=== PATIENT | female | born 1990 | race Caucasian/White ===

== ENCOUNTER 2022-06-10 12:36 | Emergency (ER) | payer BC, OTHER, SELFPAY ==
[2022-06-10 14:20] VITALS: BP 99/66; PULSE 77; RESP 16; TEMP 36.6; O2SAT 99; BMI 21.6
--- NOTE | 2022-06-10 14:26 | EXP.UTC ---
Discharge Plan Disposition Patient Disposition: Home, Self-Care Condition: Good Prescriptions Prescriptions: New azithromycin [Zithromax] 250 mg tablet 250 mg PO UD DOSE PK Qty: 6 0RF Rx Instructions: Take two (2) tablets today, then one (1) tablet days #2 thru #5 benzonatate [benzonatate] 100 mg capsule 100 mg PO TIDP PRN (Reason: Cough) Qty: 30 0RF methylprednisolone 4 mg Tablets,Dose Pack 4 mg PO DIRECTED Qty: 21 0RF Referrals Follow up/Referrals: Provider,Referral, MD [Primary Care Provider] - See instructions Activity Restrictions/Add. Instructions Additional Instructions/Restrictions: Drink plenty of fluids. Take tylenol or ibuprofen for pain or fever. Take the medications as directed. Follow up with your regular doctor. GO TO THE ER FOR ANY WORSENING SYMPTOMS Clinical Impressions Clinical Impression: Sinusitis, Bronchitis Stand Alone Forms Stand Alone Forms: Work/School Release Instructions Patient Instructions: Sinusitis, DI for Sinusitis Discharge ED Provider: Horacio Mendez [facility] General Stated complaint: congested X3 weeks Mode of Arrival: Ambulatory Source of Information: Patient Limitations: No Limitations Time Seen by Provider: 06/10/22 14:23 Description of Symptoms (Recalled from Triage Doc. by RN): pt comes in with c/o congestion, runny nose, sinus pressure ongoing for 5-6 weeks. HEENT Symptoms (Recalled from RN notes): Yes Resp Symptoms (Recalled from RN notes): Yes Skin Symptoms (Recalled from RN notes): No MS Symptoms (Recalled from RN notes): No Functional Status (Recalled from RN notes): n/a History of Present Illness Provider Complaint: She is here with sinus congestion and a cough for the past 3 weeks approx. She denies any fever, chills, body aches and other symptoms. Related Data Previous Rx's Medication Instructions Recorded azithromycin 250 mg tablet 250 mg PO UD DOSE PK #6 tabs 06/10/22 (Zithromax) benzonatate 100 mg capsule 100 mg PO TIDP PRN Cough #30 caps 06/10/22 methylprednisolone 4 mg tablets in 4 mg PO DIRECTED #21 tabs 06/10/22 a dose pack Allergies Allergy/AdvReac Type Severity Reaction Status Date / Time ceftriaxone [From Rocephin] Allergy Verified 06/10/22 14:22 Worker's Comp Is this a Worker's Comp case?: No PFSH PFSH Social History Smoking Status: Never smoker alcohol intake: never current occupational status: employed Travel in the last 8 weeks: None ROS Obtained: Yes All systems reviewed & no additional complaints except as documented Constitutional Constitutional: Denies chills, Denies fever(s) and Reports poor appetite Eyes Eyes: Denies eye discharge ENT Ears, Nose, Mouth, and Throat: Denies ear discharge, Reports otalgia, Denies hearing loss, Denies sinus pain and Reports sore throat Cardiovascular Cardiovascular: Denies chest pain and Denies dyspnea Respiratory Respiratory: Denies chest congestion, Reports cough and Denies dyspnea Gastrointestinal Gastrointestingal: Denies abdominal pain, diarrhea, nausea or vomiting Musculoskeletal Musculoskeletal: Denies arthralgias Integumentary/Breasts Skin/Breast: Denies rash Physical Exam General General appearance: alert and in no apparent distress Head Head exam: atraumatic, normocephalic and normal inspection Eye Eye exam: Present normal appearance, PERRL and EOMI ENT ENT exam: Present normal exam, normal oropharynx, mucous membranes moist, TM's normal bilaterally and normal external ear exam Neck Neck exam: Present normal inspection, full ROM and trachea midline; Absent meningismus or lymphadenopathy Chest Chest inspection: Present normal inspection and symmetric chest wall rise; Absent tenderness Respiratory Respiratory exam: Present normal lung sounds bilaterally; Absent respiratory distress Cardiovascular Cardiovascular exam: Present regular rate and normal rhythm; Absent JVD Abdominal Exam Abdominal exam: Present soft and
[2022-06-10 14:47] VITALS: BP 99/66; PULSE 77; RESP 16; TEMP 36.6
[2022-06-10 14:51] LABS: Adenovirus,PCR Not Detected (NotDetected); Bordetella Pertussis Not Detected (NotDetected); Chlamydophila Pneumoniae, PCR Not Detected (NotDetected); Coronavirus 19, PCR Not Detected (NotDetected); Coronavirus 229E Not Detected (NotDetected); Coronavirus NL63 Not Detected (NotDetected); Coronavirus OC43 Not Detected (NotDetected); Coronovirus HKU1,PCR Not Detected (NotDetected); Human Metapneumovirus Not Detected (NotDetected); Influenza A, PCR Not Detected (NotDetected); Influenza AH1, 2009 Not Detected (NotDetected); Influenza AH1, PCR Not Detected (NotDetected); Influenza AH3,PCR Not Detected (NotDetected); Influenza B, PCR Not Detected (NotDetected); Mycoplasma Pneumoniae, PCR Not Detected (NotDetected); Parainfluenza 1, PCR Not Detected (NotDetected); Parainfluenza 2, PCR Not Detected (NotDetected); Parainfluenza 3, PCR Not Detected (NotDetected); Parainfluenza 4, PCR Not Detected (NotDetected); Respiratory Syncytial Virus Not Detected (NotDetected)
[2022-06-11 09:10] LABS: Rhinovirus/Enterovirus Detected (NotDetected)
== END 2022-06-10 14:48 | disposition home or self-care (01) ==
PROVIDERS: Emergency Provider Nurse Practitioner Family
DX: J40 Bronchitis, not specified as acute or chronic (principal); J32.9 Chronic sinusitis, unspecified
CPT/HCPCS: 87581; 87632; 87798; 99212; C9803; G0463; U0003; U0005

== ENCOUNTER 2022-07-16 12:10 | Emergency (ER) | payer BC, OTHER, SELFPAY ==
[2022-07-16 12:24] VITALS: BP 140/69; PULSE 92; RESP 18; TEMP 36.8; O2SAT 97; BMI 21.4
[2022-07-16 12:40] LABS: UTC Strep Screen (Rapid) Negative (Negative)
--- NOTE | 2022-07-16 12:40 | EXP.UTC ---
Discharge Plan Disposition Patient Disposition: Home, Self-Care Condition: Good Prescriptions Prescriptions: New methylprednisolone [Medrol (David)] 4 mg tablets,dose pack See Rx Instructions .Route .COMPLEX 6 Days Qty: 21 0RF Rx Instructions: taper pack; fluticasone propionate [Flonase Allergy Relief] 50 mcg/actuation spray,suspension 1 spray intranasal DAILY Qty: 16 0RF Rx Instructions: administer into each nostril azithromycin [Zithromax Z-David] 250 mg tablet See Rx Instructions .ROUTE .COMPLEX 5 Days Qty: 6 0RF Rx Instructions: For 250 mg dose pack: take 500 mg today (day 1), then 250 mg for 4 days (days 2-5) No Action norethindrone ac-eth estradiol [Microgestin 08/02 ()] 1-20 mg-mcg tablet 1 tab PO DAILY Label Comments: TAKE 1 TABLET BY MOUTH ONCE DAILY Referrals Follow up/Referrals: Provider,Referral, MD [Primary Care Provider] - See instructions Activity Restrictions/Add. Instructions Additional Instructions/Restrictions: *Monitor Temp, Over the counter Motrin or Tylenol as directed/as needed Tylenol every 4 hours and Motrin every 6 hours (as long as your family doctor has told you that you can take it) for fever or pain. and straight to ER if unable to lower temp less than 101.0 after medication given *Warm salt water gargles may help to soothe the throat *Throat Lozenges? *Warm fluids like tea with honey may help to soothe the throat? *Sleep elevated *Humidifier/Vaporizer Your throat swab was sent for culture. Those results are typically sent to your primary care. Be sure to follow up in 2-3 days with your family doctor/primary care physician if no improvement so they can review those result and treat if necessary. If you don?t have a primary care doctor, I recommend you get one but in the mean time, you will have to return to a walk in clinic Follow up IMMEDIATELY for new or worsening symptoms or no Noticeable improvement over the next 48-72 hours. 911 for difficulty breathing or swallowing Clinical Impressions Clinical Impression: URI (upper respiratory infection) Qualifiers: URI type: unspecified URI Qualified Code(s): J06.9 - Acute upper respiratory infection, unspecified Instructions Patient Instructions: Sore Throat, DI for Sinusitis Discharge ED Provider: Marguerite Lemons [facility] General Stated complaint: Sore throat, neck pain Mode of Arrival: Ambulatory Source of Information: Patient Time Seen by Provider: 07/16/22 12:40 Description of Symptoms (Recalled from Triage Doc. by RN): sore throat, neck aching, cough, GARCIA, and drainage HEENT Symptoms (Recalled from RN notes): Yes Resp Symptoms (Recalled from RN notes): No Skin Symptoms (Recalled from RN notes): No MS Symptoms (Recalled from RN notes): No Functional Status (Recalled from RN notes): n/a History of Present Illness Provider Complaint: Patient states she has been having sore throat, sinus drainage in the back of her throat headache and sinus congestion States that today she was still not feeling well and her throat was hurting worse so she came in to get checked out Related Data Home Medications Medication Instructions Recorded Confirmed norethindrone acetate 1 mg-ethinyl 1 tab PO DAILY control 07/16/22 07/16/22 estradiol 20 mcg tablet (Microgestin) Previous Rx's Medication Instructions Recorded azithromycin 250 mg tablet See Rx Instructions PO .COMPLEX 5 07/16/22 (Zithromax Z-David) days #6 tabs fluticasone propionate 50 1 spray intranasal DAILY #16 grams 07/16/22 mcg/actuation nasal spray,suspension (Flonase Allergy Relief) methylprednisolone 4 mg tablets in See Rx Instructions .Route 07/16/22 a dose pack (Medrol (David)) .COMPLEX 6 days #21 tabs Allergies Allergy/AdvReac Type Severity Reaction Status Date / Time ceftriaxone [From Rocephin] Allergy Verified 07/16/22 12:27 Worker's Comp Is this a Worker's Comp case?: No
[2022-07-16 13:05] LABS: UTC Pregnancy Test, Urine Negative (Negative)
[2022-07-16 13:14] VITALS: BP 140/69; PULSE 92; RESP 18; TEMP 36.8; O2SAT 97
== END 2022-07-16 13:14 | disposition home or self-care (01) ==
PROVIDERS: Emergency Provider Nurse Practitioner
DX: J06.9 Acute upper respiratory infection, unspecified (principal)
CPT/HCPCS: 81025; 87880; 99212; 99213; G0463

== ENCOUNTER → 2023-02-26 11:25 | Outpatient (CLI) | payer BC, OTHER, SELFPAY ==
--- NOTE | 2023-02-26 11:29 | XR_ITS ---
FINAL REPORT CLINICAL HISTORY: PAIN IN KNEE FINDINGS: Left knee Three views were obtained. There is no acute fracture or dislocation. The joint spaces appear normal. No joint effusion is identified. No soft tissue abnormality is identified. IMPRESSION: No acute process. Reviewed, Interpreted and Dictated by Mayank Cartagena III, MD Transcribed by Tami Elam Authenticated and [facility]
== END ==
PROVIDERS: PCP Internal Medicine Adolescent Medicine; Visit Provider Internal Medicine Adolescent Medicine
DX: M25.562 Pain in left knee (principal)
CPT/HCPCS: 73562

== ENCOUNTER 2023-03-08 11:18 | Emergency (ER) | payer BC, OTHER, SELFPAY ==
[2023-03-08 11:19] VITALS: BP 106/75; PULSE 79; RESP 18; TEMP 36.6; O2SAT 98; BMI 21.6
--- NOTE | 2023-03-08 11:25 | EXP.UTC ---
Discharge Plan Disposition Patient Disposition: Home, Self-Care Condition: Good Prescriptions Prescriptions: New methylprednisolone [Medrol (David)] 4 mg tablets,dose pack 4 mg PO DIRECTED Qty: 21 0RF tizanidine [Zanaflex] 4 mg tablet 4 mg PO TID PRN (Reason: muscle spasticity) Qty: 30 0RF No Action norethindrone ac-eth estradiol [Microgestin 08/02 ()] 1-20 mg-mcg tablet 1 tab PO DAILY Patient Comments: TAKE 1 TABLET BY MOUTH ONCE DAILY methylprednisolone [Medrol (David)] 4 mg tablets,dose pack See Rx Instructions .Route .COMPLEX 6 Days Qty: 21 0RF Rx Instructions: taper pack; fluticasone propionate [Flonase Allergy Relief] 50 mcg/actuation spray,suspension 1 spray intranasal DAILY Qty: 16 0RF Rx Instructions: administer into each nostril azithromycin [Zithromax Z-David] 250 mg tablet See Rx Instructions .ROUTE .COMPLEX 5 Days Qty: 6 0RF Rx Instructions: For 250 mg dose pack: take 500 mg today (day 1), then 250 mg for 4 days (days 2-5) Referrals Follow up/Referrals: Willem Danielson MD [Primary Care Provider] - See instructions Activity Restrictions/Add. Instructions Additional Instructions/Restrictions: Follow up with Dr Danielson if not improving Clinical Impressions Clinical Impression: Thoracalgia Instructions Patient Instructions: DI for Thoracic Back Pain Discharge ED [place]mi [place] [facility] [place] General Stated complaint: back pain Time Seen by Provider: 03/08/23 11:42 History of Present Illness Provider Complaint: Patient has had intermittent sharp stabbing pain in mid back and right side X 1 day. No pain with sitting still. Pain increases with deep breaths, leaning forward such as tying shoes. No known injury. Does note that she has had intermittent sharp LUQ pain intermittently in the past, that only last seconds but brings tears to her eyes. Onset (ago): day(s) (1) Location: back Radiation: back Severity: moderate Severity scale (1-10): 5 Quality: burning, stabbing and sharp Consistency: intermittent Relieving factors: none Exacerbating factors: movement Associated symptoms: denies other symptoms Treatments prior to arrival: none Related Data Home Medications Medication Instructions Recorded Confirmed norethindrone acetate 1 mg-ethinyl 1 tab PO DAILY control 07/16/22 07/16/22 estradiol 20 mcg tablet (Microgestin) Previous Rx's Medication Instructions Recorded azithromycin 250 mg tablet See Rx Instructions PO .COMPLEX 5 07/16/22 (Zithromax Z-David) days #6 tabs fluticasone propionate 50 1 spray intranasal DAILY #16 grams 07/16/22 mcg/actuation nasal spray,suspension (Flonase Allergy Relief) methylprednisolone 4 mg tablets in See Rx Instructions .Route 07/16/22 a dose pack (Medrol (David)) .COMPLEX 6 days #21 tabs methylprednisolone 4 mg tablets in 4 mg PO DIRECTED #21 tabs 03/08/23 a dose pack (Medrol (David)) tizanidine 4 mg tablet (Zanaflex) 4 mg PO TID PRN muscle spasticity 03/08/23 #30 tabs Allergies Allergy/AdvReac Type Severity Reaction Status Date / Time ceftriaxone [From Rocephin] Allergy Verified 07/16/22 12:27 [facility] Disclaimer: The information contained in this section may have been updated after the patient was seen, as this information can be updated by other users. Social History (Updated 06/10/22 @ 14:36 by Horacio Mendez APRN) Smoking Status: Never smoker alcohol intake: never current occupational status: employed Travel in the last 8 weeks: None ROS Obtained: Yes All systems reviewed & no additional complaints except as documented Musculoskeletal Musculoskeletal: Reports back pain Physical Exam General General appearance: alert and in no apparent distress Head Head exam: atraumatic, normocephalic and normal inspection Eye Eye exam: Present normal appearance, PERRL and EOMI Chest Chest inspection: Present normal inspection and symmetric
[2023-03-08 12:14] VITALS: BP 106/75; PULSE 79; RESP 18; TEMP 36.6; O2SAT 98
== END 2023-03-08 12:15 | disposition home or self-care (01) ==
PROVIDERS: Emergency Provider Physician Assistant; PCP Internal Medicine Adolescent Medicine
DX: M54.6 Pain in thoracic spine (principal)
CPT/HCPCS: 99212; 99214; G0463

== ENCOUNTER 2023-07-30 14:20 | Emergency (ER) | payer BC, OTHER, SELFPAY ==
[2023-07-30 14:21] VITALS: PULSE 102; RESP 18; TEMP 36.8; O2SAT 99; BMI 22.6
--- NOTE | 2023-07-30 14:47 | EXP.UTC ---
Discharge Plan Disposition Patient Disposition: Home, Self-Care Condition: Good Prescriptions Prescriptions: No Action 1 mg Tablet 1 tab PO DAILY Referrals Follow up/Referrals: Willem Danielson MD [Primary Care Provider] - See instructions Activity Restrictions/Add. Instructions Additional Instructions/Restrictions: Drink plenty of fluids. Take tylenol for pain or fever. Follow up with your regular doctor. GO TO THE ER FOR ANY WORSENING SYMPTOMS Clinical Impressions Clinical Impression: Acute viral syndrome Instructions Patient Instructions: DI for Viral Syndrome Discharge ED Provider: Horacio Mendez [facility] General Stated complaint: sore throat and congestion Time Seen by Provider: 07/30/23 14:47 History of Present Illness Provider Complaint: She states that for the past 2 days she has had sore throat, chills, fever, and body aches. Related Data Home Medications Medication Instructions Recorded Confirmed [id number] 1 mg 1 tab PO DAILY vitamins 07/30/23 07/30/23 tablet Allergies Allergy/AdvReac Type Severity Reaction Status Date / Time ceftriaxone [From Rocephin] Allergy Verified 07/30/23 14:53 [facility] Disclaimer: The information contained in this section may have been updated after the patient was seen, as this information can be updated by other users. Social History (Updated 06/10/22 @ 14:36 by Horacio Mendez APRN) Smoking Status: Never smoker alcohol intake: never current occupational status: employed Travel in the last 8 weeks: None ROS Obtained: Yes All systems reviewed & no additional complaints except as documented Constitutional Constitutional: Reports chills and Reports fever(s) Eyes Eyes: Denies eye discharge ENT Ears, Nose, Mouth, and Throat: Reports as per HPI Cardiovascular Cardiovascular: Denies chest pain Respiratory Respiratory: Denies chest congestion and Reports cough Gastrointestinal Gastrointestingal: Reports nausea; Denies abdominal pain, constipation, cramping, diarrhea or vomiting Musculoskeletal Musculoskeletal: Denies arthralgias Integumentary/Breasts Skin/Breast: Denies rash Neurologic Neurologic: Denies paresthesias Physical Exam General General appearance: alert and in no apparent distress Head Head exam: atraumatic, normocephalic and normal inspection Eye Eye exam: Present normal appearance, PERRL and EOMI ENT ENT exam: Present normal exam, normal oropharynx, mucous membranes moist, TM's normal bilaterally and normal external ear exam Neck Neck exam: Present normal inspection, full ROM and trachea midline; Absent meningismus or lymphadenopathy Chest Chest inspection: Present normal inspection and symmetric chest wall rise; Absent tenderness Respiratory Respiratory exam: Present normal lung sounds bilaterally; Absent respiratory distress Cardiovascular Cardiovascular exam: Present regular rate and normal rhythm; Absent JVD Abdominal Exam Abdominal exam: Present soft and normal bowel sounds; Absent distention, tenderness or guarding Extremities Exam Extremities exam: Present normal inspection, full ROM and normal capillary refill; Absent calf tenderness Back Exam Back exam: Present normal inspection; Absent tenderness Neurological Exam Neurological exam: Present alert and oriented X3 Psychiatric Psychiatric exam: Present normal affect and normal mood Skin Skin exam: Present warm, dry, intact and normal color Lymphatic Lymphatic Findings: no adenopathy Medical Decision Making Medical Records Medical records reviewed: No I reviewed the patient's medical records. [place] Inquiry Pt receiving controlled substance: No Lab Data Lab results reviewed: Yes I reviewed the patient's lab results.
[2023-07-30 15:09] LABS: UTC Influenza A Antigen Negative (Negative); UTC Influenza B Antigen Negative (Negative)
[2023-07-30 15:10] LABS: UTC Strep Screen (Rapid) Negative (Negative)
[2023-07-30 15:28] VITALS: BP 0/0; PULSE 102; RESP 18; TEMP 36.8; O2SAT 99
== END 2023-07-30 15:28 | disposition home or self-care (01) ==
PROVIDERS: Emergency Provider Nurse Practitioner Family; PCP Internal Medicine Adolescent Medicine
DX: R07.0 Pain in throat (principal); R09.81 Nasal congestion; R50.9 Fever, unspecified; M79.18 Myalgia, other site; B34.9 Viral infection, unspecified
CPT/HCPCS: 87635; 87804; 87880; 99212; 99213; G0463

== ENCOUNTER 2025-05-28 17:29 | Emergency (ER) | payer BC, OTHER, SELFPAY ==
--- OUTSIDE RECORDS SUMMARY | 2025-03-29 13:13 | XMS_ITS | Encounter Summary ---
[facility] Address [address] [place] [id number] Care Team Providers Care Hoisting Engine Operator Name Role Phone Sandy Romero APRN Primary Care Provid er Reason for Visit * Reason Comments Headache Encounter Details Date Type Department Care Team (Late st Contact Info) Description 03/29/2025 2:13 PM EDT - 03/29/2025 4:56 PM EDT Emergency [facility] EMERGENCY DEPARTMENT [address] [address] Amadou Wolf MD [address] [place] [address] COVID-19 (Primary Dx); Nausea and vomiting, unspecified vomiting type Discharge Disposition: Home or Self Care Social History Tobacco Use Types Packs/Day Years Used Date Smoking Tobacco: Never Assessed Abuse Screen Answer Date Recorded Feels Unsafe at Home or Work/School no 03/29/2025 Feels Threatened by Someone no 03/14 Does Anyone Try to Keep You From Having Contact with Others or Doing Things Outside Your Home? no 03/29/2025 Physical Signs of Abuse Present no 03/29/2025 Estimated Date of Delivery Comme nts Yes 08/07/2025 Sex and Gender Information Value Date Recorded Sex Assigned at Not on file Legal Sex Female 11:35 AM EST Gender Identity Not on file Sexual Orientation Not on file documented as of this encounter Last Filed Vital Signs Vital Sign Reading Time Taken Comments Blood Pressure 104/59 03/29/2025 4:30 PM EDT Pulse 98 03/29/2025 4:47 PM EDT Temperature 36.8 C (98.2 F) 03/29/2025 2:11 PM EDT Respiratory Rate 16 03/29/2025 2:11 PM EDT Oxygen Saturation 99% 03/29/2025 4:30 PM EDT Inhaled Oxygen Concentration - - Weight 62.8 kg (138 lb 6.4 oz) 03/29/2025 2:11 P M EDT Height 162.6 cm (5' 4 ) 03/29/2025 2:11 PM EDT Body Mass Index 23.76 03/29/2025 2:11 PM EDT documented in this encounter Functional Status * Calculated C-SSRS Risk Score (Lifetime/Recent) Answer Date of Assessment Author No Risk Indicated 03/29/2025 2:13 PM EDT Karly Gaines RN * Iron Suicide Severity Rating Scale (Screener/Recent Self-Report) Question Answer Date of Assessment Author 1. Wish to be (Past 1 Month) No 03/29/2025 2:13 PM EDT Doroteo Quiles RN 2. Non-Specific Active Suicidal Thoughts (Past 1 Month) No 03/29/2025 2:13 PM EDT Doroteo Quiles RN 6. Suicidal Behavior (Lifetime) No 03/29/2025 2:13 PM EDT Doroteo Quiles RN documented as of this encounter Discharge Instructions * Discharge Instructions* Kerry Richard PA-C - 03/29/2025 4:39 PM EDT Take Tylenol at home as needed for low-grade fevers. Follow-up with Dr. Last. Return to the nearest emergency department if symptoms worsen. * Attachments The following attachments cannot be sent through Care Everywhere. * and COVID-19 (Togolese) * Nausea and Vomiting Adult (Togolese) documented in this encounter Miscellaneous Notes * [facility] Provider Note - Kerry Richard PA-C - 03/29/2025 4:56 PM EDT Images from the original note were not included. [facility] EMERGENCY DEPARTMENT ENCOUNTER Pt Name: Kerry Todd Birthdate: 1990 Date of evaluation: 03/29/2025 Provider: Kerry Richard PA-C CHIEF COMPLAINT Chief Complaint Patient presents with Headache HISTORY OF PRESENT ILLNESS (Location/Symptom, Timing/Onset, Context/Setting, Quality, Duration, Modifying Factors, Severity.) Kerry Todd is a 34 y.o. female who presents to the emergency department with a headache, nausea, and vomiting that started this morning. Patient is currently 21 weeks . She denies any vaginal bleeding or abdominal cramping. She states she is feeling good movement. She denies any fevers. She states she has taken Zofran at home for nausea. Nursing notes were reviewed. REVIEW OF SYSTEMS (2-9 systems for level 4, 10 or more for level 5) Review of Systems Constitutional: Positive for fatigue. Negative for chills and fever. HENT: Negative for ear pain and sore throat. Respiratory: Negative for cough and shortness of breath. Cardiovascular: Negative for chest pain. Gastrointestinal: Positive for nausea and vomiting. Negative for diarrhea. Genitourinary: Negative for dysuria and frequency. Musculoskeletal: Negative for back pain and neck pain. Neurological: Positive for headaches. All systems reviewed and negative except for those discussed in HPI. PAST MEDICAL HISTORY History reviewed. No pertinent past medical history. SURGICAL HISTORY History reviewed. No pertinent surgical history. CURRENT MEDICATIONS No current facility-administered medications for this encounter. No current outpatient medications on file. ALLERGIES Rocephin [ceftriaxone] FAMILY HISTORY History reviewed. No pertinent family history. SOCIAL HISTORY Social History Socioeconomic History Marital status: PHYSICAL EXAM (up to 7 for level 4, 8 or more for level 5) Physical Exam Vitals and nursing note reviewed. HENT: Head: Normocephalic and atraumatic. Right Ear: Tympanic membrane, ear canal and external ear normal. Left Ear: Tympanic membrane, ear canal and external ear normal. Mouth/Throat: Pharynx: No oropharyngeal exudate or posterior oropharyngeal erythema. Eyes: Extraocular Movements: Extraocular movements intact. Pupils: Pupils are equal, round, and reactive to light. Cardiovascular: Rate and Rhythm: Normal rate and regular rhythm. Pulses: Normal pulses. Pulmonary: Effort: Pulmonary effort is normal. Breath sounds: Normal breath sounds. Abdominal: General: Abdomen is flat. Bowel sounds are normal. Palpations: Abdomen is soft. Musculoskeletal: General: Normal range of motion. Cervical back: Normal range of motion. Skin: General: Skin is warm and dry. Neurological: General: No focal deficit present. Mental Status: She is alert and oriented to person, place, and time. Psychiatric: Mood and Affect: Mood normal. Behavior: Behavior normal. DIAGNOSTIC RESULTS EKG: All EKGs are interpreted by the Emergency Department Physician who either signs or Co-signs this chart in the absence of a dock attendant. No orders to display RADIOLOGY: Non-plain film images such as CT, Ultrasound and MRI are read by the radiologist. Plain radiographic images are visualized and preliminarily interpreted by the emergency physician with the below findings: [] Radiologist's Report Reviewed: No orders to display ED BEDSIDE ULTRASOUND: Performed by ED Physician - none LABS: I have reviewed and interpreted all of the currently available lab results from this visit (if applicable): Results for orders placed or performed during the hospital encounter of 03/29/25 Comprehensive Metabolic Panel Collection Time: 03/29/25 2:19 PM Specimen: Blood Result Value Ref Range Glucose 162 (H) 65 - 99 mg/dL BUN 8.7 6.0 - 20.0 mg/dL Creatinine 0.66 0.57 - 1.00 mg/dL Sodium 138 136 - 145 mmol/L Potassium 3.8 3.5 - 5.2 mmol/L Chloride 104 98 - 107 mmol/L CO2 18.6 (L) 22.0 - 29.0 mmol/L Calcium 8.7 8.6 - 10.5 mg/dL Total Protein 6.1 6.0 - 8.5 g/dL Albumin 3.7 3.5 - 5.2 g/dL ALT (SGPT) 33 1 - 33 U/L AST (SGOT) 36 (H) 1 - 32 U/L Alkaline Phosphatase 59 39 - 117 U/L Total Bilirubin 0.3 0.0 - 1.2 mg/dL Globulin 2.4 gm/dL A/G Ratio 1.5 g/dL BUN/Creatinine Ratio 13.2 7.0 - 25.0 Anion Gap 15.4 (H) 5.0 - 15.0 mmol/L eGFR 116.8 >60.0 mL/min/1.73 CBC Auto Differential Collection Time: 03/29/25 2:19 PM Specimen: Blood Result Value Ref Range WBC 9.32 3.40 - 10.80 10*3/mm3 RBC 4.00 3.77 - 5.28 10*6/mm3 Hemoglobin 11.9 (L) 12.0 - 15.9 g/dL Hematocrit 35.7 34.0 - 46.6 % MCV 89.3 79.0 - 97.0 fL MCH 29.8 26.6 - 33.0 pg MCHC 33.3 31.5 - 35.7 g/dL RDW 13.5 12.3 - 15.4 % RDW-SD 45.0 37.0 - 54.0 fl MPV 11.2 6.0 - 12.0 fL Platelets 218 140 - 450 10*3/mm3 Neutrophil % 87.3 (H) 42.7 - 76.0 % Lymphocyte % 3.5 (L) 19.6 - 45.3 % Monocyte % 7.5 5.0 - 12.0 % Eosinophil % 0.2 (L) 0.3 - 6.2 % Basophil % 0.3 0.0 - 1.5 % Immature Grans % 1.2 (H) 0.0 - 0.5 % Neutrophils, Absolute 8.13 (H) 1.70 - 7.00 10*3/mm3 Lymphocytes, Absolute 0.33 (L) 0.70 - 3.10 10*3/mm3 Monocytes, Absolute 0.70 0.10 - 0.90 10*3/mm3 Eosinophils, Absolute 0.02 0.00 - 0.40 10*3/mm3 Basophils, Absolute 0.03 0.00 - 0.20 10*3/mm3 Immature Grans, Absolute 0.11 (H) 0.00 - 0.05 10*3/mm3 Hemoglobin A1c Collection Time: 03/29/25 2:19 PM Specimen: Blood Result Value Ref Range Hemoglobin A1C 4.99 4.80 - 5.60 % Beta Hydroxybutyrate Quantitative Collection Time: 03/29/25 2:19 PM Specimen: Blood Result Value Ref Range Beta-Hydroxybutyrate Quant 0.243 0.020 - 0.270 mmol/L Green Top (Gel) Collection Time: 03/29/25 2:19 PM Result Value Ref Range Extra Tube Hold for add-ons. Lavender Top Collection Time: 03/29/25 2:19 PM Result Value Ref Range Extra Tube hold for add-on Gold Top - SST Collection Time: 03/29/25 2:19 PM Result Value Ref Range Extra Tube Hold for add-ons. Hilton Top Collection Time: 03/29/25 2:19 PM Result Value Ref Range Extra Tube Hold for add-ons. Light Blue Top Collection Time: 03/29/25 2:19 PM Result Value Ref Range Extra Tube Hold for add-ons. Respiratory Panel PCR w/COVID-19(SARS-CoV-2) SHARAN/MUNDO/EDISON/PAD/COR/BRUNA In-House, TAILOR FITTER Swab in UTM/VTM, 2 HR TAT - Swab, Nasopharynx Collection Time: 03/29/25 2:47 PM Specimen: Nasopharynx; Swab Result Value Ref Range ADENOVIRUS, PCR Not Detected Not Detected Coronavirus 229E Not Detected Not Detected Coronavirus HKU1 Not Detected Not Detected Coronavirus NL63 Not Detected Not Detected Coronavirus OC43 Not Detected Not Detected COVID19 Detected (C) Not Detected - Ref. Range Human Metapneumovirus Not Detected Not Detected Human Rhinovirus/Enterovirus Not Detected Not Detected Influenza A PCR Not Detected Not Detected Influenza B PCR Not Detected Not Detected Parainfluenza Virus 1 Not Detected Not Detected Parainfluenza Virus 2 Not Detected Not Detected Parainfluenza Virus 3 Not Detected Not Detected Parainfluenza Virus 4 Not Detected Not Detected RSV, PCR Not Detected Not Detected Bordetella pertussis pcr Not Detected Not Detected Bordetella parapertussis PCR Not Detected Not Detected Chlamydophila pneumoniae PCR Not Detected Not Detected Mycoplasma pneumo by PCR Not Detected Not Detected Urinalysis With Microscopic If Indicated (No Culture) - Urine, Clean Catch Collection Time: 03/29/25 2:58 PM Specimen: Urine, Clean Catch Result Value Ref Range Color, UA Yellow Yellow, Straw Appearance, UA Clear Clear pH, UA 6.0 5.0 - 8.0 Specific [place], UA >=1.030 1.005 - 1.030 Glucose, UA Negative Negative Ketones, UA 15 mg/dL (1+) (A) Negative Bilirubin, UA Negative Negative Blood, UA Negative Negative Protein, UA Trace (A) Negative Leuk Esterase, UA Negative Negative Nitrite, UA Negative Negative Urobilinogen, UA 0.2 E.U./dL 0.2 - 1.0 E.U./dL Blood Gas, Venous With Co-Ox Collection Time: 03/29/25 3:37 PM Specimen: Venous Blood Result Value Ref Range Site Nurse/Dr Draw pH, Venous 7.346 7.310 - 7.410 pH Units pCO2, Venous 40.3 (L) 41.0 - 51.0 mm Hg pO2, Venous 24.5 (L) 27.0 - 53.0 mm Hg HCO3, Venous 22.0 22.0 - 28.0 mmol/L Base Excess, Venous -3.4 (L) -2.0 - 2.0 mmol/L Hemoglobin, Blood Gas 10.7 (L) 14 - 18 g/dL Oxyhemoglobin Venous 41.6 % Methemoglobin Venous 0.5 % Carboxyhemoglobin Venous 1.0 % CO2 Content 23.3 22 - 33 mmol/L Temperature 37.0 Barometric Pressure for Blood Gas Modality Room Air FIO2 21 % Ventilator Mode All other labs were within normal range or not returned as of this dictation. EMERGENCY DEPARTMENT COURSE and DIFFERENTIAL DIAGNOSIS/MDM: Vitals: Vitals: 03/29/25 1530 03/29/25 1600 03/29/25 1630 03/29/25 1647 BP: 101/60 104/59 104/59 BP Location: Patient Position: Pulse: 97 93 97 98 Resp: Temp: TempSrc: SpO2: 100% 97% 99% Weight: Height: ED Course as of 03/29/25 2151 FriMar 29, 2025 1558 Hemoglobin A1C: 4.99 [WA] 1559 Beta-Hydroxybutyrate Quant: 0.243 [WA] 1559 COVID19(!!): Detected [WA] ED Course User Index [WA] Kerry Richard PA-C MDM Ddx: Viral syndrome, UTI, hyperemesis Patient was evaluated, labs and imaging were obtained. Patient was noted to be positive for COVID-19. Patient advised to drink plenty of fluids at home. Take Tylenol at home as needed. Follow-up withDr. Last. Return to the nearest emergency department if symptoms worsen. I had a discussion with the patient/family regarding diagnosis, diagnostic results, treatment plan,and medications. The patient/family indicated understanding of these instructions. I spent adequatetime at the bedside preceding discharge necessary to personally discuss the aftercare instructions, giving patient education, providing explanations of the results of our evaluations/findings, and mydecision making to assure that the patient/family understand the plan of care. Time was allotted toanswer questions at that time and throughout the ED course. Emphasis was placed on timely follow-upafter discharge. I also discussed the potential for the development of an acute emergent condition requiring further evaluation, admission, or even surgical intervention. I discussed that we found nothing during the visit today indicating the need for further workup, admission, or the presence of an unstable medical condition. I encouraged the patient to return to the emergency department immediately for ANY concerns, worsening, new complaints, or if symptoms persist and unable to seek follow-up in a timely fashion. The patient/family expressed understanding and agreement with this plan. The patient will follow-up with Dr. Last for reevaluation. MEDICATIONS ADMINISTERED IN ED: Medications sodium chloride 0.9 % bolus 1,000 mL (0 mL Intravenous Stopped 03/29/25 1618) metoclopramide (REGLAN) injection 10 mg (10 mg Intravenous Given 03/29/25 1458) diphenhydrAMINE (BENADRYL) injection 12.5 mg (12.5 mg Intravenous Given 03/29/25 1458) acetaminophen (TYLENOL) tablet 650 mg (650 mg Oral Given 03/29/25 1456) sodium chloride 0.9 % bolus 1,000 mL (0 mL Intravenous Stopped 03/29/25 1655) PROCEDURES: Procedures:none CRITICAL CARE TIME Total Critical Care time was 0 minutes, excluding separately reportable procedures. There was a high probability of clinically significant/life threatening deterioration in the patient's condition which required my urgent intervention. FINAL IMPRESSION 1. COVID-19 2. Nausea and vomiting, unspecified vomiting type DISPOSITION/PLAN ED Disposition ED Disposition Discharge Condition Stable Comment -- PATIENT REFERRED TO: Terrie Last MD [address] [place] [address] DISCHARGE MEDICATIONS: Medication List You have not been prescribed any medications. Comment: Please note this report has been produced using speech recognition software. Kerry Richard PA-C Cosigned by Amadou Wolf MD at 03/30/2025 7:12 AM EDT Associated attestation - Amadou Wolf MD - 03/30/2025 7:12 AM EDT SUPERVISE: For this patient encounter, I reviewed the APC's documentation, treatment plan, and medical decision making. Amadou Wolf MD 03/30/2025 07:11 EDT documented in this encounter Plan of Treatment Upcoming Encounters Date Type Department Care Team (Late st Contact Info) Description 08/01/2025 3:30 PM EST Pre-Admission Testing [facility] PREADMISSION T [address] [place] [address] 08/03/2025 7:30 AM EST Hospital Encounter [facility] LABOR DELIVERY [address] [place] [address] Terrie Last MD [address] [address] 08/03/2025 7:30 AM EST - 08/03/2025 8:30 AM EST Surgery [facility] LABOR DELIVERY [address] [place] [address] Terrie Last MD [address] [address] SECTION PRIMARY Scheduled Procedures Name Priority Associated Diagnoses Date/Ti me SECTION PRIMARY 7:30 AM EST documented as of this encounter Procedures Procedure Name Priority Date/Time Associated Diagnosis Comments BLOOD GAS, VENOUS W/CO-OXIMETRY STAT 03/29/2025 3:37 PM EDT URINALYSIS W/ MICROSCOPIC IF INDICATED (NO CULTURE) STAT 03/29/2025 2:58 PM EDT RESPIRATORY PANEL PCR W/ COVID-19 (SARS-COV-2), TAILOR FITTER SWAB IN UTM/VTP, 2 HR TAT STAT 03/29/2025 2:47 PM EDT BETA HYDROXYBUTYRATE QUANTITATIVE STAT 03/29/2025 2:19 PM EDT HILTON TOP STAT 03/29/2025 2:19 PM EDT GOLD TOP - SST STAT 03/29/2025 2:19 PM EDT DK GREEN TOP STAT 03/29/2025 2:19 PM EDT CBC WITH AUTO DIFFERENTIAL STAT 03/29/2025 2:19 PM EDT LAVENDER TOP STAT 03/29/2025 2:19 PM EDT LIGHT BLUE TOP STAT 03/29/2025 2:19 PM EDT RAINBOW DRAW STAT 03/29/2025 2:19 PM EDT CBC AND DIFFERENTIAL STAT 03/29/2025 2:19 PM EDT HEMOGLOBIN A1C STAT 03/29/2025 2:19 PM EDT COMPREHENSIVE METABOLIC PANEL STAT 03/29/2025 2:19 PM EDT documented in this encounter Results * (ABNORMAL) Blood Gas, Venous With Co-Ox (03/29/2025 3:37 PM EDT) Site Nurse/Dr Guzman 03/29/2025 3:36 PM EDT [facility] RESPIRATORY THERAPY pH, Venous 7.346 7.310 - 7.410 pH Units 03/29/2025 3:36 PM EDT [facility] RESPIRATORY THERAPY pCO2, Venous 40.3(L) 41.0 - 51.0 mm Hg 03/29/2025 3:36 PM EDT [facility] RESPIRATORY THERAPY Comment:84 Value below refer ence range pO2, Venous 24.5(L) 27.0 - 53.0 mm Hg 03/29/2025 3:36 PM EDT [facility] RESPIRATORY THERAPY Comment:84 Value below refer ence range HCO3, Venous 22.0 22.0 - 28.0 mmol/L 03/29/2025 3:36 PM EDT [facility] RESPIRATORY THERAPY Base Excess, Venous -3.4(L) -2.0 - 2.0 mmol/L 03/29/2025 3:36 PM EDT [facility] RESPIRATORY THERAPY Hemoglobin, Blood Gas 10.7(L) 14 - 18 g/dL 03/29/2025 3:36 PM EDT [facility] RESPIRATORY THERAPY Oxyhemoglobin Venous 41.6 % 03/14 3:36 PM EDT [facility] RESPIRATORY THERAPY Methemoglobin Venous 0.5 % 03/14 3:36 PM EDT [facility] RESPIRATORY THERAPY Carboxyhemoglobin Venous 1.0 % 03/29/2025 3:36 PM EDT [facility] RESPIRATORY THERAPY CO2 Content 23.3 22 - 33 mmol/L 03/29/2025 3:36 PM EDT [facility] RESPIRATORY THERAPY Temperature 37.0 03/29/2025 3:36 PM EDT [facility] RESPIRATORY THERAPY Barometric Pressure for Blood Gas 03/29/2025 3:36 PM EDT [facility] RESPIRATORY THERAPY Comment:N/A Modality Room Air 03/29/2025 3:36 PM EDT [facility] RESPIRATORY THERAPY FIO2 21 % 03/29/2025 3:36 PM EDT [facility] RESPIRATORY THERAPY Ventilator Mode 3:36 PM EDT [facility] RESPIRATORY THERAPY Comment:Meter: [id number] Police Radio Dispatcher: [id number] Venous Blood 03/29/2025 3:37 PM EDT 03/29/2025 3:37 PM EDT us Amadou Wolf MD LAB BLOOD ORDERABLES Final Result [facility] RESPIRATORY THERAPY
[address] [facility] [address] [place] [address], [place] * (ABNORMAL) Urinalysis With Microscopic If Indicated (No Culture) - Urine, Clean Catch (03/29/2025 2:58 PM EDT) Color, UA Yellow Yellow, Straw 03/29/2025 3:00 PM EDT [facility] Appearance, UA Clear Clear 03/29/2025 3:00 PM EDT [facility] pH, UA 6.0 5.0 - 8.0 03/29/2025 3:00 PM EDT [facility] Specific [place], UA >=1.030 1.005 - 1.030 03/29/2025 3:00 PM EDT [facility] Glucose, UA Negative Negative 03/29/2025 3:00 PM EDT [facility] Ketones, UA 15 mg/dL (1+)(A) Negative 03/29/2025 3:00 PM EDT [facility] Bilirubin, UA Negative Negative 03/29/2025 3:00 PM EDT [facility] Blood, UA Negative Negative 03/29/2025 3:00 PM EDT [facility] Protein, UA Trace(A) Negative 03/29/2025 3:00 PM EDT [facility] Leuk Esterase, UA Negative Negative 03/29/2025 3:00 PM EDT [facility] Nitrite, UA Negative Negative 03/29/2025 3:00 PM EDT [facility] Urobilinogen, UA 0.2 E.U./dL 0.2 - 1.0 E.U./dL 03/29/2025 3:00 PM EDT [facility] Urine Urine specimen obtained by clean catch procedure / Unknown 03/29/2025 2:58 PM EDT 03/29/2025 2:58 PM EDT [facility] - 03/29/2025 3:00 PM EDT Urine microscopic not indicated. us Kerry Solorzano Richard PA-C URINE ORDERABLES Final Res ult [facility]
[address] [facility] [address] [place] [address], * (ABNORMAL) Respiratory Panel PCR w/COVID-19(SARS-CoV-2) SHARAN/MUNDO/EDISON/PAD/COR/BRUNA In-House, TAILOR FITTER Swab in UTM/VTM, 2 HR TAT - Swab, Nasopharynx (03/29/2025 2:47 PM EDT) Pathologist [facility] ADENOVIRUS, PCR Not Detected Not Detected BIOFIRE FILMARRAY 03/29/2025 3:48 PM EDT [facility] Coronavirus 229E Not Detected Not Detected BIOFIRE FILMARRAY 03/29/2025 3:48 PM EDT [facility] Coronavirus HKU1 Not Detected Not Detected BIOFIRE FILMARRAY 03/29/2025 3:48 PM EDT [facility] Coronavirus NL63 Not Detected Not Detected BIOFIRE FILMARRAY 03/29/2025 3:48 PM EDT [facility] Coronavirus OC43 Not Detected Not Detected BIOFIRE FILMARRAY 03/29/2025 3:48 PM EDT [facility] COVID19 Detected(AA ) Not Detected - Ref. Range BIOFIRE FILMARRAY 03/29/2025 3:48 PM EDT [facility] Human Metapneumovirus Not Detected Not Detected BIOFIRE FILMARRAY 03/29/2025 3:48 PM EDT [facility] Human Rhinovirus/Enterov irus Not Detected Not Detected BIOFIRE FILMARRAY 03/29/2025 3:48 PM EDT [facility] Influenza A PCR Not Detected Not Detected BIOFIRE FILMARRAY 03/29/2025 3:48 PM EDT [facility] Influenza B PCR Not Detected Not Detected BIOFIRE FILMARRAY 03/29/2025 3:48 PM EDT [facility] Parainfluenza Virus 1 Not Detected Not Detected BIOFIRE FILMARRAY 03/29/2025 3:48 PM EDT [facility] Parainfluenza Virus 2 Not Detected Not Detected BIOFIRE FILMARRAY 03/29/2025 3:48 PM EDT [facility] Parainfluenza Virus 3 Not Detected Not Detected BIOFIRE FILMARRAY 03/29/2025 3:48 PM EDT [facility] Parainfluenza Virus 4 Not Detected Not Detected BIOFIRE FILMARRAY 03/29/2025 3:48 PM EDT [facility] RSV, PCR Not Detected Not Detected BIOFIRE FILMARRAY 03/29/2025 3:48 PM EDT [facility] Bordetella pertussis pcr Not Detected Not Detected [facility] 03/29/2025 3:48 PM EDT [facility] Bordetella parapertussis PCR Not Detected Not Detected BIOFIRE FILMARRAY 03/29/2025 3:48 PM EDT [facility] Chlamydophila pneumoniae PCR Not Detected Not Detected [facility] 03/29/2025 3:48 PM EDT [facility] Mycoplasma pneumo by PCR Not Detected Not Detected [facility] 03/29/2025 3:48 PM EDT [facility] Swab Nasopharyngeal structure / Unknown Collection / Unknown 03/29/2025 2:47 PM EDT 03/29/2025 2:51 PM EDT [facility] - 03/29/2025 3:48 PM EDT In the setting of a positive respiratory panel with a viral infection PLUS a negative procalcitonin without other underlying concern for bacterial infection, consider observing off antibiotics or discontinuation of antibiotics and continue supportive care. If the respiratory panel is positive for atypical bacterial infection (Bordetella pertussis, Chlamydophila pneumoniae, or Mycoplasma pneumoniae), consider antibiotic de-escalation to target atypical bacterial infection. us Kerry Richard PA-C MICROBIOLOGY - GENERAL ORD ERABLES Final Result [facility]
[address] [facility] [address] [place] [id number], * Beta Hydroxybutyrate Quantitative (03/29/2025 2:19 PM EDT) Beta-Hydroxybu tyrate Quant 0.243 0.020 - 0.270 mmol/L 03/29/2025 3:43 PM EDT [facility] Blood Line / Unknown 03/29/2025 2: 19 PM EDT 03/29/2025 2:22 PM EDT [facility] - 03/29/2025 3:43 PM EDT In the assessment of possible diabetic ketoacidosis, the test should be interpreted along with other clinical and laboratory findings. A level greater than 1 mmol/L should require further evaluation and levels of more than 3 mmol/L require immediate medical review. us Kerry E Richard PA-C LAB BLOOD ORDERABLES Final Result Performing Organization Address [facility]/ZIP Co de Phone Number [facility]
[address] [place] [address], [place] * Hemoglobin A1c (03/29/2025 2:19 PM EDT) Hemoglobin A1C 4.99 4.80 - 5.60 % 03/29/2025 3:45 PM EDT [facility] Blood Line / Unknown 03/29/2025 2: 19 PM EDT 03/29/2025 2:22 PM EDT [facility] - 03/29/2025 3:45 PM EDT Hemoglobin A1C Ranges: Increased Risk for Diabetes 5.7% to 6.4% Diabetes >= 6.5% Diabetic Goal < 7.0% Kerry E Richard PA-C LAB BLOOD ORDERABLES Final Result Performing Organization Address [facility] Co de Phone Number [facility]
[address] [place] [address], [place] * (ABNORMAL) CBC Auto Differential (03/29/2025 2:19 PM EDT) WBC 9.32 3.40 - 10.80 10*3/mm3 03/29/2025 2:49 PM EDT [facility] RBC 4.00 3.77 - 5.28 10*6/mm3 03/29/2025 2:49 PM EDT [facility] Hemoglobin 11.9(L) 12.0 - 15.9 g/dL 03/29[facility]2025 [facility] Hematocrit 35.7 34.0 - 46.6 % 03/29/2025 2:49 PM [facility] MCV 89.3 79.0 - 97.0 fL 03/29/2025 2:49 PM [facility] MCH 29.8 26.6 - 33.0 pg 03/29/2025 2:49 PM [facility] MCHC 33.3 31.5 - 35.7 g/dL 03/29/2025 2:49 PM [facility] RDW 13.5 12.3 - 15.4 % 03/29/2025 2:49 PM [facility] RDW-SD 45.0 37.0 - 54.0 fl 03/29/2025 2:49 PM [facility] MPV 11.2 6.0 - 12.0 fL 03/29/2025 2:49 PM [facility] Platelets 218 140 - 450 10*3/mm3 03/29/2025 2:49 PM [facility] Neutrophil % 87.3(H) 42.7 - 76.0 % 03/29/2025 2:49 PM [facility] Lymphocyte % 3.5(L) 19.6 - 45.3 % 03/29/2025 2:49 PM [facility] Monocyte % 7.5 5.0 - 12.0 % 03/29/2025 2:49 PM [facility] Eosinophil % 0.2(L) 0.3 - 6.2 % 03/29/2025 2:49 PM [facility] Basophil % 0.3 0.0 - 1.5 % 03/29/2025 2:49 PM [facility] Immature Grans % 1.2(H) 0.0 - 0.5 % 03/29/2025 2:49 PM [facility] Neutrophils, Absolute 8.13(H) 1.70 - 7.00 10*3/mm3 03/29/2025 2:49 PM [facility] Lymphocytes, Absolute 0.33(L) 0.70 - 3.10 10*3/mm3 03/29/2025 2:49 PM EDT [facility] Monocytes, Absolute 0.70 0.10 - 0.90 10*3/mm3 03/29/2025 2:49 PM EDT [facility] Eosinophils, Absolute 0.02 0.00 - 0.40 10*3/mm3 03/29/2025 2:49 PM EDT [facility] Basophils, Absolute 0.03 0.00 - 0.20 10*3/mm3 03/29/2025 2:49 PM EDT [facility] Immature Grans, Absolute 0.11(H) 0.00 - 0.05 10*3/mm3 03/29/2025 2:49 PM EDT [facility] Blood Line / Unknown 03/29/2025 2: 19 PM EDT 03/29/2025 2:22 PM EDT us Kerry E Richard PA-C LAB BLOOD ORDERABLES Final Result [facility]
[address] [facility] [address] [place] [address], * (ABNORMAL) Comprehensive Metabolic Panel (03/29/2025 2:19 PM EDT) Glucose 162(H) 65 - 99 mg/dL 03/29/2025 3:00 PM EDT [facility] BUN 8.7 6.0 - 20.0 mg/dL 03/29/2025 3:00 PM EDT [facility] Creatinine 0.66 0.57 - 1.00 mg/dL 03/29/2025 3:00 PM EDT [facility] Sodium 138 136 - 145 mmol/L 03/29/2025 3:00 PM EDT [facility] Potassium 3.8 3.5 - 5.2 mmol/L 03/29/2025 3:00 PM EDT [facility] Chloride 104 98 - 107 mmol/L 03/29/2025 3:00 PM EDT [facility] CO2 18.6(L) 22.0 - 29.0 mmol/L 03/29/2025 3:00 PM EDT [facility] Calcium 8.7 8.6 - 10.5 mg/dL 03/29/2025 3:00 PM [facility] Total Protein 6.1 6.0 - 8.5 g/dL 03/29/2025 3:00 PM [facility] Albumin 3.7 3.5 - 5.2 g/dL 03/29/2025 3:00 PM [facility] ALT (SGPT) 33 1 - 33 U/L 03/29/2025 3:00 PM [facility] AST (SGOT) 36(H) 1 - 32 U/L 03/29/2025 3:00 PM [facility] Alkaline Phosphatase 59 39 - 117 U/L 03/29/2025 3:00 PM [facility] Total Bilirubin 0.3 0.0 - 1.2 mg/dL 03/29/2025 3:00 PM [facility] Globulin 2.4 gm/dL 03/29/2025 3:00 PM [facility] A/G Ratio 1.5 g/dL 03/29/2025 3:00 PM [facility] BUN/Creatinine Ratio 13.2 7.0 - 25.0 03/29/2025 3:00 PM [facility] Anion Gap 15.4(H) 5.0 - 15.0 mmol/L 03/29/2025 3:00 PM [facility] eGFR 116.8 >60.0 mL/min/1.7 3 03/29/2025 3:00 PM [facility] Blood Line / Unknown 03/29/2025 2: 19 PM EDT 03/29/2025 2:22 PM T [facility] - 03/29/2025 3:00 PM EDT GFR Categories in Chronic Kidney Disease (CKD) GFR Category GFR (mL/min/1.73) Interpretation G1 90 or greater Normal or high (1) G2 60-89 Mild decrease (1) G3a 45-59 Mild to moderate decrease G3b 30-44 Moderate to severe decrease G4 15-29 Severe decrease G5 14 or less Kidney failure (1)In the absence of evidence of kidney disease, neither GFR category G1 or G2 fulfill the criteria for CKD. eGFR calculation 2020 CKD-EPI creatinine equation, which does not include race as a factor us Kerry Richard PA-C LAB BLOOD ORDERABLES Final Result [facility]
[address] [place] [address], [place] * Light Blue Top (03/29/2025 2:19 PM EDT) Extra Tube Hold for add-ons. 03/29/2025 2:31 PM EDT [facility] Comment:Auto resulted Blood Line / Unknown 03/29/2025 2: 19 PM EDT 03/29/2025 2:22 PM EDT us Amadou Wolf MD LAB BLOOD ORDER ONLY Final Result Performing Organization Address [facility]/ZIP Co de Phone Number [facility]
[address] [place] [address], [place] * Hilton Top (03/29/2025 2:19 PM EDT) Extra Tube Hold for add-ons. 03/29/2025 2:31 PM EDT [facility] Comment:Auto resulted. Blood Line / Unknown 03/29/2025 2: 19 PM EDT 03/29/2025 2:22 PM EDT us Amadou Wolf MD LAB BLOOD ORDER ONLY Final Result Performing Organization Address City/[facility]/ZIP Co de Phone Number [facility]
[address] [place] [address], [place] * Gold Top - SST (03/29/2025 2:19 PM EDT) Extra Tube Hold for add-ons. 03/29/2025 2:31 PM EDT [facility] Comment:Auto resulted. Blood Line / Unknown 03/29/2025 2: 19 PM EDT 03/29/2025 2:22 PM EDT us Amadou Wolf MD LAB BLOOD ORDER ONLY Final Result [facility]
[address] [facility] [address] [place] [address], [place] * Lavender Top (03/29/2025 2:19 PM EDT) Extra Tube hold for add-on 03/29/2025 2:31 PM EDT [facility] Comment:Auto resulted Blood Line / Unknown 03/29/2025 2: 19 PM EDT 03/29/2025 2:22 PM EDT us Amadou Wolf MD LAB BLOOD ORDER ONLY Final Result Performing Organization Address City/[facility]/ZIP Co de Phone Number [facility]
[address] [facility] [address] [place] [address], [place] * Green Top (Gel) (03/29/2025 2:19 PM EDT) Extra Tube Hold for add-ons. 03/29/2025 2:31 PM EDT [facility] Comment:Auto resulted. Blood Line / Unknown 03/29/2025 2: 19 PM EDT 03/29/2025 2:22 PM EDT us Amadou Wolf MD LAB BLOOD ORDER ONLY Final Result [facility]
[address] [facility] [address] [place] [address], [place] documented in this encounter Visit Diagnoses Diagnosis COVID-19- Primary Nausea and vomiting, unspecified vomiting type documented in this encounter Administered Medications Inactive Administered Medications - up to 3 most recent administrations Medication Order MAR Action Action Date Dose Rate Site acetaminophen (TYLENOL) tablet 650 mg 650 mg, Oral, Once, On Fri03/29/25 at 1515, For 1 dose, If given for fever, use fever parameter: fever greater than 100.4 F Based on patient request - if ordered for moderate or severe pain, provider allows for administration of a medication prescribed for a lower pain scale. Do not exceed 4 grams of acetaminophen in a 24 hr period. Max dose of 2gm for AST/ALT greater than 120 units/L. If given for pain, use the following pain scale: Mild Pain = Pain Score of 1-3, CPOT 1-2 Moderate Pain = Pain Score of 4-6, CPOT 3-4 Severe Pain = Pain Score of 7-10, CPOT 5-8 Given 03/29/2025 2:56 PM EDT 650 mg diphenhydrAMINE (BENADRYL) injection 12.5 mg 12.5 mg, Intravenous, Once, On Fri03/29/25 at 1515, For 1 dose, Caution: Look alike/sound alike drug alert. This med may be ordered in other forms and routes. Before giving verify the last time the drug was given by any route/form. Given 03/29/2025 2:58 PM EDT 12.5 mg metoclopramide (REGLAN) injection 10 mg 10 mg, Intravenous, Once, On Fri03/29/25 at 1515, For 1 dose, Doses of 10 mg or less can be given IV push undiluted over 1 to 2 minutes Given 03/29/2025 2:58 PM EDT 10 mg sodium chloride 0.9 % bolus 1,000 mL 1,000 mL, Intravenous, at 2,000 mL/hr, Administer over 0.5 Hours, Once, On Fri03/29/25 at 1500, For 1 dose New Bag 03/29/2025 2:58 PM EDT 1,000 mL 2000 mL/hr sodium chloride 0.9 % bolus 1,000 mL 1,000 mL, Intravenous, at 2,000 mL/hr, Administer over 0.5 Hours, Once, On Fri03/29/25 at 1545, For 1 dose New Bag 03/29/2025 4:18 PM EDT 1,000 mL 2000 mL/hr sodium chloride 0.9 % flush 10 mL 10 mL, Intravenous, As Needed, Line Care, Starting on Fri03/29/25 at 1419 sodium chloride 0.9 % flush 10 mL 10 mL, Intravenous, As Needed, Line Care, Starting on Fri03/29/25 at 1443 documented in this encounter Active and Recently Administered Medications Times are shown in EDT. Scheduled Medication Order 03/27/2025 03/28/2025 03/29/2025 acetaminophen (TYLENOL) tablet 650 mg (COMPLETED) 650 mg, Oral, Once, On Fri03/29/25 at 1515, For 1 dose, If given for fever, use fever parameter: fever greater than 100.4 F Based on patient request - if ordered for moderate or severe pain, provider allows for administration of a medication prescribed for a lower pain scale. Do not exceed 4 grams of acetaminophen in a 24 hr period. Max dose of 2gm for AST/ALT greater than 120 units/L. If given for pain, use the following pain scale: Mild Pain = Pain Score of 1-3, CPOT 1-2 Moderate Pain = Pain Score of 4-6, CPOT 3-4 Severe Pain = Pain Score of 7-10, CPOT 5-8 1456 (Given - Provid er: Yuni Colón RN) diphenhydrAMINE (BENADRYL) injection 12.5 mg (COMPLETED) 12.5 mg, Intravenous, Once, On Fri03/29/25 at 1515, For 1 dose, Caution: Look alike/sound alike drug alert. This med may be ordered in other forms and routes. Before giving verify the last time the drug was given by any route/form. 1458 (Given - Provid er: Yuni Colón RN) metoclopramide (REGLAN) injection 10 mg (COMPLETED) 10 mg, Intravenous, Once, On Fri03/29/25 at 1515, For 1 dose, Doses of 10 mg or less can be given IV push undiluted over 1 to 2 minutes 1458 (Given - Provid er: Yuni Colón RN) sodium chloride 0.9 % bolus 1,000 mL (COMPLETED) 1,000 mL, Intravenous, at 2,000 mL/hr, Administer over 0.5 Hours, Once, On Fri03/29/25 at 1500, For 1 dose 1458 (New Bag - Prov ider: Yuni Colón, JADON)1618 (Stopped - Provider: Yuni Colón RN) sodium chloride 0.9 % bolus 1,000 mL (COMPLETED) 1,000 mL, Intravenous, at 2,000 mL/hr, Administer over 0.5 Hours, Once, On Fri03/29/25 at 1545, For 1 dose 1618 (New Bag - Prov ider: Yuni Colón RN)1655 (Stopped - Provider: Yuni Colón RN) PRN Medication Order 03/27/2025 03/28/2025 03/29/2025 sodium chloride 0.9 % flush 10 mL 10 mL, Intravenous, As Needed, Line Care, Starting on Fri03/29/25 at 1419 sodium chloride 0.9 % flush 10 mL(Linked Group 1) 10 mL, Intravenous, As Needed, Line Care, Starting on Fri03/29/25 at 1443 Linked Groups Order Group 1: Insert Peripheral IV (CANCELED) STAT, Once, On Fri03/29/25 at 1444, For 1 occurrence And sodium chloride 0.9 % flush 10 mLJump to med 10 mL, Intravenous, As Needed, Line Care, Starting on Fri03/29/25 at 1443 documented in this encounter Additional Health Concerns Infection Onset Date Last Indicated Resolved Time COVID (confirmed) 03/29/2025 03/29/2025 documented as of this encounter Care Teams Hoisting Engine Operator Relationship Specialty Start Date End Date Sandy Romero APRN [facility] [place] [address] PCP - General Nurse Practitioner 03/23/25 documented as of this encounter
--- OUTSIDE RECORDS SUMMARY | 2025-05-18 12:55 | XMS_ITS | Encounter Summary ---
Author Organization [facility] yste Address [address] [place] [address] Care Team Providers Care Webfocus Developer Name Role Phone Sandy Romero APRN Primary Care Provid er Encounter Details Date Type Department Care Team (Late st Contact Info) Description 05/18/2025 12:55 PM EST Lab [facility] [address] [place] [phone] care, subsequent , second trimester; 24 weeks gestation of Social History Tobacco Use Types Packs/Day Years [...] on file documented as of this encounter Plan of Treatment Upcoming Encounters Date Type Department Care Team (Late st Contact Info) Description 08/01/2025 3:30 PM EST Pre-Admission Testing [facility] PREADMISS[facility] T [address] [place] [phone] 08/03/2025 7:30 AM EST Hospital Encounter [facility] [address] [place] [address] Terrie Last MD [address] [facility] [address] 08/03/2025 7:30 AM EST - 08/03/2025 8:30 AM EST Surgery [facility] [address] [place] [address] Terrie Last MD [address] [facility] [address] SECTION PRIMARY Scheduled Procedures Name Priority Associated Diagnoses Date/Ti me SECTION PRIMARY 7:30 AM EST documented as of this encounter Procedures Procedure Name Priority Date/Time Associated Diagnosis Comments TREPONEMA PALLIDUM AB W/REFLEX RPR Routine 05/18/2025 1:21 PM EST care, subsequent , second trimester 24 weeks gestation of GLUCOSE, POST 50 GM GLUCOLA Routine 05/18/2025 1:21 PM EST care, subsequent , second trimester 24 weeks gestation of CBC (NO DIFF) Routine 05/18/2025 1:21 PM EST care, subsequent , second trimester 24 weeks gestation of ANTIBODY SCREEN Routine 05/18/2025 1:21 PM EST care, subsequent , second trimester 24 weeks gestation of TSH Routine 05/18/2025 1:21 PM EST care, subsequent , second trimester 24 weeks gestation of T4, FREE Routine 05/18/2025 1:21 PM EST care, subsequent , second trimester 24 weeks gestation of POCT GLUCOSE FINGERSTICK Routine 05/18/2025 1:19 PM EST documented in this encounter Results * Treponema pallidum AB w/Reflex RPR (05/18/2025 1:21 PM EST) [facility] Treponemal AB Total Non-Reacti ve Non-React sivan 05/18/2025 7:47 PM EST [facility] Blood Venipuncture / Unknown 05/18/2025 1:21 PM EST 05/18/2025 1:21 PM EST Narrative [facility] - 05/18/2025 7:47 PM EST Reactive results will reflex RPR testing. us Terrie Last MD LAB BLOOD ORDERABLES Final Re sult Performing Organization Address City/[facility]/ZIP Co de Phone Number [facility]
[address] [place] [address], [place] [phone] * (ABNORMAL) Glucose, Post 50 Gm Glucola (05/18/2025 1:21 PM EST) [facility] Gestational GCT 144(H) 65 - 139 mg/dL 05/18/2025 2:15 PM EST [facility] Blood Venipuncture / Unknown 05/18/2025 1:21 PM EST 05/18/2025 1:21 PM EST us Terrie Last MD LAB BLOOD ORDERABLES Final Re sult Performing Organization Address City/[facility]/ZIP Co de Phone Number [facility]
[address] [place] [address], [place] [phone] * Antibody Screen (05/18/2025 1:21 PM EST) [facility] Antibody Screen Negative 05/18/2025 3:06 PM EST [facility] Blood Venipuncture / Unknown 05/18/2025 1:21 PM EST 05/18/2025 1:21 PM EST us Terrie Last MD BLOOD BANK TEST ORDERABLES Fi nal Result [facility]
[address] [place] [address], * (ABNORMAL) CBC (No Diff) (05/18/2025 1:21 PM EST) WBC 12.33(H) 3.40 - 10.80 10*3/mm3 05/18/2025 7:00 PM EST [facility] RBC 4.18 3.77 - 5.28 10*6/mm3 05/18/2025 7:00 PM [facility] Hemoglobin 13.0 12.0 - 15.9 g/dL 05/18/2025 7:00 PM [facility] Hematocrit 38.2 34.0 - 46.6 % 05/18/2025 7:00 PM [facility] MCV 91.4 79.0 - 97.0 fL 05/18/2025 7:00 PM [facility] MCH 31.1 26.6 - 33.0 pg 05/18/2025 7:00 PM [facility] MCHC 34.0 31.5 - 35.7 g/dL 05/18/2025 7:00 PM [facility] RDW 12.1(L) 12.3 - 15.4 % 05/18/2025 7:00 PM [facility] RDW-SD 39.9 37.0 - 54.0 fl 05/18/2025 7:00 PM [facility] MPV 11.2 6.0 - 12.0 fL 05/18/2025 7:00 PM [facility] Platelets 278 140 - 450 10*3/mm3 05/18/2025 7:00 PM [facility] Blood Venipuncture / Unknown 05/18/2025 1:21 PM EST 05/18/2025 1:21 PM EST us Terrie Last MD LAB BLOOD ORDERABLES Final Re sult [facility]
[address] [place] [address], * (ABNORMAL) T4, Free (05/18/2025 1:21 PM EST) [facility] Free T4 0.83(L) 0.92 - 1.68 ng/dL 05/18/2025 7:47 PM EST [facility] Blood Venipuncture / Unknown 05/18/2025 1:21 PM EST 05/18/2025 1:21 PM EST us Terrie Last MD LAB BLOOD ORDERABLES Final Re sult Performing Organization Address City/[facility]/ZIP Co de Phone Number [facility]
[address] [place] [address], * TSH (05/18/2025 1:21 PM EST) [facility] TSH 1.250 0.270 - 4.200 uIU/mL 05/18/2025 7:47 PM EST [facility] Blood Venipuncture / Unknown 05/18/2025 1:21 PM EST 05/18/2025 1:21 PM EST us Terrie Last MD LAB BLOOD ORDERABLES Final Re sult Performing Organization Address City/[facility]/ZIP Co de Phone Number [facility]
[address] [place] [address], * (ABNORMAL) POC Glucose (05/18/2025 1:19 PM EST) [facility] Glucose 146(H) 70 - 130 mg/dL 05/18/2025 1:21 PM EST [facility] Comment:Serial Number: [id number] Blood 05/18/2025 1:19 PM EST 05/18/2025 1:21 PM EST us Terrie Last MD POINT OF CARE TEST ORDERABLES Final Result [facility]
[address] [place] [address], documented in this encounter Visit Diagnoses Diagnosis care, subsequent , second trimester 24 weeks gestation of documented in this encounter Additional Health Concerns Infection Onset Date Last Indicated Resolved Time COVID (confirmed) 03/29/2025 03/29/2025 documented as of this encounter Care Teams Webfocus Developer Relationship Specialty Start Date End Date Sandy Romero APRN [address] [place] [phone] PCP - General Nurse Practitioner 03/23/25 documented as of this encounter
--- OUTSIDE RECORDS SUMMARY | 2025-05-25 09:00 | XMS_ITS | Encounter Summary ---
Author Organization [facility] yste Address [address] [place] [address] Care Team Providers Care Recycler Forklift Driver Truck Driver Name Role Phone Sandy Romero APRN Primary Care Provid er Encounter Details Date Type Department Care Team (Late st Contact Info) Description 05/25/2025 9:00 AM EST Lab [facility] [address] [place] [address] 29 weeks gestation of ; care, subsequent , second trimester Social History Tobacco Use Types Packs/Day Years [...] Description 08/01/2025 3:30 PM EST Pre-Admission Testing [facility] [address] [place] [address] 08/03/2025 7:30 AM EST Hospital Encounter [facility] [address] [place] [address] Terrie Last MD [address] [facility] [address] 08/03/2025 7:30 AM EST - 08/03/2025 8:30 AM EST Surgery [facility] [address] [place] [address] Terrie Last MD [address] [facility] [address] SECTION PRIMARY Scheduled Procedures Name Priority Associated Diagnoses Date/Ti me SECTION PRIMARY 7:30 AM EST documented as of this encounter Procedures Procedure Name Priority Date/Time Associated Diagnosis Comments POCT GLUCOSE FINGERSTICK Routine 05/25/2025 12:09 PM EST GTT 3 HOUR Routine 05/25/2025 12:05 PM EST 29 weeks gestation of care, subsequent , second trimester GTT 2 HOUR Routine 05/25/2025 11:05 AM EST 29 weeks gestation of care, subsequent , second trimester GTT 1 HOUR Routine 05/25/2025 10:05 AM EST 29 weeks gestation of care, subsequent , second trimester GTT FASTING Routine 05/25/2025 9:04 AM EST 29 weeks gestation of care, subsequent , second trimester GLUCOSE TOLERANCE, 3 HOURS Routine 05/25/2025 9:04 AM EST 29 weeks gestation of care, subsequent , second trimester POCT GLUCOSE FINGERSTICK Routine 05/25/2025 9:01 AM EST documented in this encounter Results * POC Glucose (05/25/2025 12:09 PM EST) [facility] Signature Glucose 99 70 - 130 mg/dL 05/25/2025 12:11 PM EST [facility] Comment:Serial Number: [id number]: [id number] Blood 05/25/2025 12:0 9 PM EST 05/25/2025 12:11 PM EST us Terrie Last MD POINT OF CARE TEST ORDERABLES Final Result Performing Organization Address City/[facility]/ZIP Co de Phone Number [facility]
[address] [place] [address], * GTT 3 Hour (05/25/2025 12:05 PM EST) Glucose, GTT - 3 Hour 97 74 - 140 mg/dL 05/25/2025 1:44 PM EST [facility] Blood Venipuncture / Unknown 05/25/2025 12:05 PM EST 05/25/2025 1:29 PM EST us Terrie Last MD LAB BLOOD ORDERABLES Final Re sult Performing Organization Address City/[facility]/ZIP Co de Phone Number [facility]
[address] [place] [address], * GTT 2 Hour (05/25/2025 11:05 AM EST) Glucose, GTT - 2 Hour 118 74 - 155 mg/dL 05/25/2025 12:57 PM EST [facility] Blood Venipuncture / Unknown 05/25/2025 11:05 AM EST 05/25/2025 12:40 PM EST us Terrie Last MD LAB BLOOD ORDERABLES Final Re sult Performing Organization Address City/[facility]/ZIP Co de Phone Number [facility]
[address] [place] [address], * (ABNORMAL) GTT 1 Hour (05/25/2025 10:05 AM EST) Glucose, GTT - 1 Hour 199(H) 74 - 180 mg/dL 05/25/2025 11:02 AM EST [facility] Blood Venipuncture / Unknown 05/25/2025 10:05 AM EST 05/25/2025 10:16 AM EST us Terrie Last MD LAB BLOOD ORDERABLES Final Re sult [facility]
[address] [place] [address], * GTT Fasting (05/25/2025 9:04 AM EST) Glucose, GTT - Fasting 103 74 - 106 mg/dL 05/25/2025 9:31 AM EST [facility] Blood Venipuncture / Unknown 05/25/2025 9:04 AM EST 05/25/2025 9:04 AM EST us Terrie Last MD LAB BLOOD ORDERABLES Final Re sult Performing Organization Address [facility]/ZIP Co de Phone Number [facility]
[address] [place] [address], * POC Glucose (05/25/2025 9:01 AM EST) Glucose 74 70 - 130 mg/dL 05/25/2025 9:04 AM EST [facility] Comment:Serial Number: [id number]: [id number] Blood 05/25/2025 9:01 AM EST 05/25/2025 9:04 AM EST us Terrie Last MD POINT OF CARE TEST ORDERABLES Final Result [facility]
[address] [place] [address], documented in this encounter Visit Diagnoses Diagnosis 29 weeks gestation of care, subsequent , second trimester documented in this encounter Additional Health Concerns Infection Onset Date Last Indicated Resolved Time COVID (confirmed) 03/29/2025 03/29/2025 documented as of this encounter Care Teams Recycler Forklift Driver Truck Driver Relationship Specialty Start Date End Date Sandy Romero APRN [address] [place] [address] PCP - General Nurse Practitioner 03/23/25 documented as of this encounter
--- OUTSIDE RECORDS SUMMARY | 2025-05-25 13:45 | XMS_ITS | Encounter Summary ---
Author Organization [facility] Address [address] [place] [address] Care Team Providers Care Mold Maker Apprentice Name Role Phone Sandy Romero APRN Primary Care Provider [phone] Encounter Details Date Type Department Care Team (Latest Contact Info) Description 05/25/2025 1:45 PM EST Clinical Support [facility] [address] [place] [address] Encounter for immunization (Primary Dx) Social History Tobacco Use Types Packs/Day Years Used Date Smoking Tobacco: Never Smokeless Tobacco: Never Alcohol Use Standard Drinks/Week Comments Not Currently 0 (1 standard drink = 0.6 oz pur e alcohol) Humiliation, Afraid, Rape, and Kick questionnair e Answer Date Recorded Within the last year, have y ou been afraid of your partner or ex-partner? No 06/14/2024 Within the last year, have y ou been humiliated or emotionally abused in other ways by your partner or ex-partner? No Within the last year, have y ou been kicked, hit, slapped, or otherwise physically hurt by your partner or ex-partner? No 06/14/2024 Within the last year, have y ou been raped or forced to have any kind of sexual activity by your partner or ex-partner? No 06/14/2024 Social Connection and Isolation Panel Answer Date Recorded In a typical week, how many times do you talk on the phone with family, friends, or neighbors? More than three times a week 06/14/2024 How often do you get togethe r with friends or relatives? More than three times a week 06/14/2024 How often do you attend chur ch or roman catholic services? More than 4 times per year 06/14/2024 Do you belong to any clubs o r organizations such as roman catholic groups, unions, fraternal or athletic groups, or school groups? Yes 06/14/2024 How often do you attend meet ings of the clubs or organizations you belong to? More than 4 times per year 06/14/2024 Are you , , di vorced, , never , or living with a partner? 06/14/2024 AUDIT-C Answer Date Recorded Q1: How often do you have a drink containing alcohol? Never 06/14/2024 Q2: How many drinks containi ng alcohol do you have on a typical day when you are drinking? Patient does not drink Q3: How often do you have si x or more drinks on one occasion? Never 06/14/2024 Overall Financial Resource Strain (CARDIA) Answe r Date Recorded How hard is it for you to pa y for the very basics like food, housing, medical care, and heating? Not hard at all 06/14/2024 PHQ-2 Answer Date Recorded Patient Health Questionnaire-2 Score 0 11/09/2024 [facility] - Occupational Stress Questionnaire Answer Date Recorded Do you feel stress - tense, restless, nervous, or anxious, or unable to sleep at night because your mind is troubled all the time - these days? Only a little 06/14/2024 Exercise Vital Sign Answer Date Recorde d On average, how many days pe r week do you engage in moderate to strenuous exercise (like a brisk walk)? 4 days 06/14/2024 On average, how many minutes do you engage in exercise at this level? 60 min 06/14/2024 Hunger Vital Sign Answer Date Recorded Within the past 12 months, y ou worried that your food would run out before you got the money to buy more. Never true 06/14/20 24 Within the past 12 months, t he food you bought just didn't last and you didn't have money to get more. Never true 06/14/2024 PRAPARE - Transportation Answer Date Re corded In the past 12 months, has l ack of transportation kept you from medical appointments or from getting medications? No 08/2023 In the past 12 months, has l ack of transportation kept you from meetings, work, or from getting things needed for daily living? No 06/14/2024 PHQ-9 Answer Date Recorded Patient Health Questionnaire-9 Score 0 11/09/2024 Housing Stability Vital Sign Answer Mason e Recorded In the last 12 months, was t here a time when you were not able to pay the mortgage or rent on time? No 06/14/2024 In the past 12 months, how m any times have you moved where you were living? 1 06/14/2024 At any time in the past 12 m [facility], were you homeless or living in a fpc (including now)? No 06/14/2024 Utilities Answer Date Recorded In the past 12 months has th e electric, gas, oil, or water company threatened to shut off services in your home? No 06/14/2024 Comments No Sex and Gender Information Value Date Recorded Sex Assigned at Female 03/13/2022 12:48 PM EDT Legal Sex Female 6:00 PM EDT Gender Identity Female 03/13/2022 12:48 PM EDT Sexual Orientation Not on file Occupation Industry Job Start Date Job End Date stay at home mom Not on file Not on file Not on file documented as of this encounter Last Filed Vital Signs Vital Sign Reading Time Taken Comments Blood Pressure - - Pulse 111 05/25/2025 1:48 PM EST Temperature - - Respiratory Rate - - Oxygen Saturation 98% 05/25/2025 1:48 PM EST Inhaled Oxygen Concentration - - Weight - - Height - - Body Mass Index - - documented in this encounter Miscellaneous Notes * Progress Notes - Vikki Cruz - 05/25/2025 1:45 PM EST Pt came in today for vaccines and did well with them. Tdap was because of . documented in this encounter Plan of Treatment Upcoming Encounters Date Type Department Care Team (Late st Contact Info) Description 06/16/2025 10:20 AM EST Office Visit [facility] [address] [facility] [place] [address] Sandy Romero, MONY [address] [place] [address] documented as of this encounter Visit Diagnoses Diagnosis Encounter for immunization- Primary documented in this encounter Additional Health Concerns Assessment Noted Time PHQ-9 Depression Total Score: 0 11/10/19 25 3:19 PM EDT A fall risk assessment has been complete d for the patient 06/27/2023 10:52 AM EST A Body Mass Index follow-up plan has been documented for the patient 05/25/2025 2:06 PM EST documented as of this encounter Care Teams Mold Maker Apprentice Relationship Specialty Start Date End Date Sandy Romero, FOLDED TOWEL MACHINE [place] [address] PCP - General Family Medicine 06/14/24 documented as of this encounter
--- OUTSIDE RECORDS SUMMARY | 2025-05-27 08:40 | XMS_ITS | Encounter Summary ---
Author Organization [facility] Address [address] [place] [address] Care Team Providers Care Activity Manager Name Role Phone Sandy Romero APRN Primary Care Provider [phone] Reason for Visit * Reason Comments Conjunctivitis Started yesterday on ly left eye Encounter Details Date Type Department Care Team (Latest Contact Info) Description 05/27/2025 8:40 AM EST Office Visit [facility] [address] [place] [address] Dhara Morillo, FREIGHT FLOW SALES LEADER, DNP [address] [place] [address] Bacterial conjunctivitis of left eye (Primary Dx) Social History Tobacco Use Types Packs/Day Years Used Date Smoking Tobacco: Never Passive Smoke Exposure: Never Smokeless Tobacco: Never Tobacco Cessation:Counseling Given: Not Answered Alcohol Use Standard Drinks/Week Comments Not Currently 0 (1 standard drink = 0.6 oz pur e alcohol) Social Connection and Isolation Panel Answer Date Recorded In a typical week, how many times do you talk on the phone with family, friends, or neighbors? More than three times a week 06/14/2024 How often do you get togethe r with friends or relatives? More than three times a week 06/14/2024 How often do you attend chur or alevism services? More than 4 times per year 06/14/2024 Do you belong to any clubs o r organizations such as presybeterian groups, unions, fraternal or athletic groups, or [...] Date Recorded Patient Health Questionnaire-2 Score 0 05/27/2025 [facility] - Occupational Stress Questionnaire Answer Date Recorded [...] exercise at this level? 60 min 06/14/2024 PHQ-9 Answer Date Recorded Patient Health Questionnaire-9 Score 0 05/27/2025 Humiliation, Afraid, Rape, and Kick questionnair e Answer Date Recorded Within the last year, have y ou been afraid of your partner or ex-partner? No 05/27/2025 Within the last year, have y ou been humiliated or emotionally abused in other ways by your partner or ex-partner? No Within the last year, have y ou been kicked, hit, slapped, or otherwise physically hurt by your partner or ex-partner? No 05/27/2025 Within the last year, have y ou been raped or forced to have any kind of sexual activity by your partner or ex-partner? No 05/27/2025 Hunger Vital Sign Answer Date Recorded Within the past 12 months, y ou worried that your food would run out before you got the money to buy more. Never true 05/27/20 Within the past 12 months, t he food you bought just didn't last and you didn't have money to get more. Never true 05/27/2025 PRAPARE - Transportation Answer Date Re corded In the past 12 months, has l ack of transportation kept you from medical appointments or from getting medications? No 05/14 In the past 12 months, has l ack of transportation kept you from meetings, work, or from getting things needed for daily living? No 05/27/2025 Housing Stability Vital Sign Answer Mason e Recorded In the last 12 months, was t here a time when you were not able to pay the mortgage or rent on time? No 05/27/2025 In the past 12 months, how m any times have you moved where you were living? 0 05/27/2025 At any time in the past 12 m [facility], were you homeless or living in a chcf (including now)? No 05/27/2025 [facility] Utilities Answer Date Recorded In the past 12 months has th e electric, gas, oil, or water company threatened to shut off services in your home? No 05/27/2025 Estimated Date of Delivery Comme nts Yes [...] Sign Reading Time Taken Comments Blood Pressure 108/64 05/27/2025 8:37 AM EST Pulse 102 05/27/2025 8:37 AM EST Temperature 36.6 C (97.9 F) 05/27/2025 8:37 AM EST Respiratory Rate 18 05/27/2025 8:37 AM EST Oxygen Saturation 99% 05/27/2025 8:37 AM EST Inhaled Oxygen Concentration - - Weight 68.3 kg (150 lb 9.2 oz) 05/27/2025 8:37 A M EST Height 162.6 cm (5' 4 ) 05/27/2025 8:37 AM EST Body Mass Index 25.85 05/27/2025 8:37 AM EST documented in this encounter Functional Status * Over the past 2 weeks, how often have you been bothered by any of the following problems? Question Answer Date of Assessment Author Little interest or pleasure in doing things Not at all 05/27/2025 8:43 AM EST Trista Guerrero ca L Feeling down, depressed, or hopeless Not at all 05/27/2025 8:43 AM EST Rafael Guerreroi ca L Patient Health Questionnaire-2 Score 0 05/27/2025 8:43 AM EST Edison Guerrero * Question Answer Date of Assessment Author Trouble falling or staying asleep, or sleeping too much Not at all 05/27/2025 8:43 AM EST Ryanne Kearney Feeling tired or having little energy Not at all 05/27/2025 8:43 AM EST Rafael Guerreroi ca L Poor appetite or overeating Not at all 05/27/2025 8: 43 AM EST Ryanne Guerrero Feeling bad about yourself - or that you are a failure or have let yourself or your family down Not at all 05/27/2025 8:43 AM EST Rafael Guerreroi ca L Trouble concentrating on things, such as reading the newspaper or watching television Not at all 05/27/2025 8:43 AM EST Trista Guerrero ca Lary Moving or speaking so slowly that other people could have noticed? Or the opposite - being so fidgety or restless that you have been moving around a lot more than usual. Not at all 05/27/2025 8:43 AM EST Ryanne Alaniz Thoughts that you would be better off or hurting yourself in some way Not at all 05/27/2025 8:43 AM EST Rafael Guerrero ica L Patient Health Questionnaire-9 Score 0 05/27/2025 8:43 AM EST Dasia-Bokros, Mo maira L * Calculated C-SSRS Risk Score (Lifetime/Recent) Answer Date of Assessment Author No Risk Indicated 05/27/2025 8:48 AM EST Dasia-Rafael Liica L * How difficult have these problems made it for you to do your work, take care of things at home, or get along with other people? Answer Date of Assessment Author Not difficult at all 05/27/2025 8:43 AM EST Dasia -Aileen Ryanne L * Question Answer Date of Assessment Author 1. Wish to be (Past 1 Month) No 05/27/2025 8:48 AM EST Dasia-Boreynaos, Trista ca L 2. Non-Specific Active Suici jacky Thoughts (Past 1 Month) No 05/27/2025 8:48 AM EST Dasia-Bokros, Ryanne L 6. Suicidal Behavior (Lifetime) No 8:48 AM EST Dasia-Aileen Ryanne L documented as of this encounter Miscellaneous Notes * Progress Notes - Dhara Morillo, FREIGHT FLOW SALES LEADER, DNP - 05/27/2025 8:40 AM EST Subjective Kerry Todd Conjunctivitis History of Present Illness The patient presents for evaluation of conjunctivitis. She began experiencing ocular discomfort yesterday, characterized by itching and a sensation henok to having sandpaper in her eye. The severity of the symptoms has slightly decreased today. She reported waking up with matted eyes and persistent redness over the past few days. Additionally, she has been dealing with congestion and frequent nosebleeds, which her OB attributed to dryness. She has notsought any treatment for her congestion due to uncertainty about safe options during . Sheis currently 30 weeks and has a history of gestational diabetes. She has previously used cream for similar symptoms, which proved effective. Occupation: Works in IT Medical/Surgical/Social/Family History Past Medical History[1] Surgical History[2] Social History[3] Family History[4] Allergies Ceftriaxone and Sulfamethoxazole-trimethoprim Immunizations VACCINE / DOSE DATE DATE Flu 05/25/2025 Tetanus 02/26/2023 05/25/2025 Pneumovax Shingles Medications Ordered Prior to Encounter[5] Allergies Ceftriaxone and Sulfamethoxazole-trimethoprim Health Maintenance Due Topic Date Due [facility]-Varicella Vaccines (1 of 2 - 13+ 2-dose series) Never done [facility]-Hepatitis B Vaccines (2 of 3 - 19+ 3-dose series) 02/24/2015 HPV Vaccines (1 - 3-dose SCDM series) Never done [facility]- SDOH Screenings 12/13/2024 [facility]-Cervical Cancer Screening 12/27/2024 All medications have been reviewed today. The following portions of the patient's chart were reviewed in this encounter and updated as appropriate: past medical history, surgical history, family history, tobacco history, allergies, and medications A 14-point review of systems was completed with pertinent positives and negatives outlined above. Objective Vitals: 05/27/25 0837 BP: 108/64 Pulse: 102 Resp: 18 Temp: 36.6 ??C (97.9 ??F) SpO2: 99% Physical Exam Constitutional: Appearance: Normal appearance. HENT: Head: Normocephalic and atraumatic. Eyes: General: Left eye: Discharge present. Cardiovascular: Rate and Rhythm: Normal rate and regular rhythm. Pulses: Normal pulses. Heart sounds: Normal heart sounds. Pulmonary: Effort: Pulmonary effort is normal. Breath sounds: Normal breath sounds. Neurological: Mental Status: She is alert and oriented to person, place, and time. Psychiatric: Mood and Affect: Mood normal. Behavior: Behavior normal. Thought Content: Thought content normal. Judgment: Judgment normal. Physical Exam Eyes: Conjunctiva appears red, consistent with conjunctivitis. Mouth/Throat: Throat examination was performed. Respiratory: Clear to auscultation, no wheezing, rales or rhonchi. Results Assessment/Plan 1. Bacterial conjunctivitis of left eye (Primary) - erythromycin (Romycin) 5 MG/GM ophthalmic ointment; Apply 1 Application to left eye 4 times a dayfor 7 days. Dispense: 3.5 g; Refill: 0 Assessment & Plan 1. Conjunctivitis: Acute. - Apply warm compresses to the affected eye. - Maintain good hand hygiene to prevent the spread of infection. - Prescription for eye drops provided. - Condition remains contagious until 24 hours after starting the medication. 2. Congestion: Chronic. - Continue taking Zyrtec. - Mucinex (plain) recommended. - Regular Sudafed recommended. - Delsym suggested for cough. Follow-up - Follow-up if needed. Dhara Morillo, FREIGHT FLOW SALES LEADER, DNP Verbal consent was obtained to use ambient listening technology to assist in the documentation of the encounter: yes [1] Past Medical History: Diagnosis Date Anxiety Headache Visual impairment [2] Past Surgical History: Procedure Laterality Date DILATION AND CURETTAGE OF UTERUS 12/2018 DILATION AND EVACUATION 06/2018 KNEE ARTHROSCOPY W/ MENISCAL REPAIR 2017 ORAL SURGERY WISDOM TOOTH EXTRACTION [3] Social History Tobacco Use Smoking status: Never Passive exposure: Never Smokeless tobacco: Never Vaping Use Vaping status: Never Used Substance Use Topics Alcohol use: Not Currently Drug use: Never [4] Family History Problem Relation Name Age of Onset Skin cancer Mother Colon polyps Mother Colonic polyp Father Alberto Basilio Diabetes Father Alberto Basilio No Known Problems Son Cancer Maternal Grandfather Murphy Salvador Arthritis Maternal Grandmother Laure Salvador Diabetes Paternal Grandmother Pippa Frazierzier Miscarriages / Stillbirths Paternal Grandmother Pippa Basilio [5] Current Outpatient Medications on File Prior to Visit Medication Sig Dispense Refill aspirin (ASPIR) 81 MG EC tablet Take 1 tablet by mouth daily. Cetirizine HCl (ZYRTEC ALLERGY PO) Take 1 tablet by mouth daily. doxylamine (Unisom) 25 MG tablet Take 1 tablet by mouth at night as needed for sleep. famotidine (Pepcid) 20 MG tablet Take 1 tablet by mouth 2 times a day as needed. levothyroxine (Synthroid, Levoxyl) 25 MCG tablet Take 1 tablet by mouth daily. MAGNESIUM PO Take 1 tablet by mouth nightly. MV-Min-Fe Fum-FA-DHA ( 1 PO) Take 1 tablet by mouth daily. Pyridoxine HCl (VITAMIN B-6 PO) Take 1 tablet by mouth daily. azelastine (Astelin) 0.1 % nasal spray Administer 1 spray into each nostril 2 (two) times a day. Use in each nostril as directed (Patient not taking: Reported on 05/27/2025) 30 mL 12 fluticasone (Flonase) 50 MCG/ACT nasal spray Administer 1 spray into each nostril 1 (one) time eachday. Shake gently. Before first use, prime pump. After use, clean tip and replace cap. (Patient nottaking: Reported on 05/27/2025) 16 g 0 No current facility-administered medications on file prior to visit. documented in this encounter Plan of Treatment Upcoming Encounters Date Type Department Care Team (Late st Contact Info) Description 06/16/2025 10:20 AM EST Office Visit [facility] [address] [place] [address] Sandy Romero APRN [address] [place] [address] documented as of this encounter Visit Diagnoses Diagnosis Bacterial conjunctivitis of left eye- Primary documented in this encounter Additional Health Concerns Assessment Noted Time PHQ-9 Depression Total Score: 0 05/27/20 25 8:43 AM EST A fall risk assessment has been complete d for the patient 06/27/2023 10:52 AM EST A Body Mass Index follow-up plan has been documented for the patient 05/27/2025 9:06 AM EST documented as of this encounter Care Teams Activity Manager Relationship Specialty Start Date End Date Sandy Romero, MONY [address] [place] [address] PCP - General Family Medicine 06/14/24 documented as of this encounter
[2025-05-28 17:29] VITALS: BP 108/73; PULSE 107; RESP 18; TEMP 36.8; O2SAT 100; BMI 25.7
--- OUTSIDE RECORDS SUMMARY | 2025-05-28 17:45 | XMS_ITS | Encounter Summary ---
Author Organization [facility] Address [address] [place] [address] Care Team Providers Care Faculty I On Call Medical Assistant Name Role Phone Sandy Romero APRN Primary Care Provid er Encounter Details Date Type Department Care Team (Latest Contact Info) Description 03/29/2025 Travel Social History Tobacco Use Types Packs/Day Years [...] on file documented as of this encounter Functional Status * Calculated C-SSRS Risk Score (Lifetime/Recent) Answer Date of Assessment Author No Risk Indicated 03/29/2025 2:13 PM JACQUIET Karly Gaines RN * [place] Suicide Severity Rating Scale (Screener/Recent Self-Report) Question Answer Date of Assessment Author 1. Wish to be (Past 1 Month) No 03/29/2025 2:13 PM EDT Doroteo Quiles RN 2. Non-Specific Active Suicidal Thoughts (Past 1 Month) No 03/29/2025 2:13 PM EDT Kb, Margar et L, RN 6. Suicidal Behavior (Lifetime) No 03/29/2025 2:13 PM EDT Doroteo Quiles, RN documented as of this encounter Plan of Treatment Upcoming Encounters Date Type Department Care Team (Late st Contact Info) Description 08/01/2025 3:30 PM EST Pre-Admission Testing [facility]READ[facility] T [address] [place] [address] 08/03/2025 7:30 AM EST Hospital Encounter [facility] DEL[facility] [address] [place] [address] Terrie Last MD [address] [address] 08/03/2025 7:30 AM EST - 08/03/2025 8:30 AM EST Surgery [facility] DELIV[facility] [address] [place] [address] Terrie Last MD [address] [address] SECTION PRIMARY Scheduled Procedures Name Priority Associated Diagnoses Date/Ti me SECTION PRIMARY 7:30 AM EST documented as of this encounter Visit Diagnoses Not on filedocumented in this encounter Additional Health Concerns Infection Onset Date Last Indicated Resolved Time COVID (confirmed) 03/29/2025 03/29/2025 documented as of this encounter Care Teams Faculty I On Call Medical Assistant Relationship Specialty Start Date End Date Sandy Romero APRN [address] [place] [address] PCP - General Nurse Practitioner 03/23/25 documented as of this encounter
--- OUTSIDE RECORDS SUMMARY | 2025-05-28 17:46 | XMS_ITS | Encounter Summary ---
Author Organization [facility] Address [address] [place] [address] Care Team Providers Care Hand Stripper Name Role Phone Sandy Romero APRN Primary Care Provider [phone] Encounter Details Date Type Department Care Team (Latest Contact Info) Description 05/27/2025 Travel Social History Tobacco Use Types Packs/Day Years Used Date Smoking Tobacco: Never Passive Smoke Exposure: Never Smokeless Tobacco: Never Alcohol Use Standard [...] How often do you attend chur or bahai services? More than 4 times per year 06/14/2024 Do you belong to any clubs o r organizations such as alevism groups, unions, fraternal or athletic groups, or [...] Recorded Patient Health Questionnaire-2 Score 0 05/27/2025 [facility] Occupat ional [facility] - Occupational Stress Questionnaire Answer Date [...] money to buy more. Never true 05/27/20 25 Within the past 12 months, t he [...] any time in the past 12 m [facility], were you homeless or living in a detention (including now)? No 05/27/2025 [facility] Utilities Answer Date Recorded In the past [...] as of this encounter Functional Status * Over the past 2 weeks, how often have you been bothered by any of the following problems? Question Answer Date of Assessment Author Little interest or pleasure in doing things Not at all 05/27/2025 8:43 AM Trista Peña L Feeling down, depressed, or hopeless Not at all 05/27/2025 8:43 AM Trista Peña ca Lary Patient Health Questionnaire-2 Score 0 05/27/2025 8:43 AM Edison Peña maira L * Question Answer Date of Assessment Author Trouble falling or staying asleep, or sleeping too much Not at all 05/27/2025 8:43 AM Ryanne Roldan Feeling tired or having little energy Not at all 05/27/2025 8:43 AM Trista Peña ca L Poor appetite or overeating Not at all 05/27/2025 8: 43 AM EST Dasia-Bokros, Ryanne L Feeling bad about yourself - or that you are a failure or have let yourself or your family down Not at all 05/27/2025 8:43 AM EST Dasia-Rafael Gallagheri ca L Trouble concentrating on things, such as reading the newspaper or watching television Not at all 05/27/2025 8:43 AM EST Dasia-Aileen Trista ca L Moving or speaking so slowly that other people could have noticed? Or the opposite - being so fidgety or restless that you have been moving around a lot more than usual. Not at all 05/27/2025 8:43 AM EST Dasia-Jose jose Ryanne L Thoughts that you would be better off or hurting yourself in some way Not at all 05/27/2025 8:43 AM EST Dasia-Borebeca Mon ica L Patient Health Questionnaire-9 Score 0 05/27/2025 8:43 AM EST Edison Guerrero * Calculated C-SSRS Risk Score (Lifetime/Recent) Answer Date of Assessment Author No Risk Indicated 05/27/2025 8:48 AM EST Dasia-Jose jose Ryanne L * How difficult have these problems made it for you to do your work, take care of things at home, or get along with other people? Answer Date of Assessment Author Not difficult at all 05/27/2025 8:43 AM EST Dasia -Aileen Ryanne L * Question Answer Date of Assessment Author 1. Wish to be (Past 1 Month) No 025 8:48 AM EST Dasia-Borebeca Ryanne L 2. Non-Specific Active Suici jacky Thoughts (Past 1 Month) No 05/27/2025 8:48 AM EST Dasia-Boreynaos Ryanne L 6. Suicidal Behavior (Lifetime) No 5 8:48 AM EST Dasia-Borebeca Ryanne L documented as of this encounter Plan of Treatment Upcoming Encounters Date Type Department Care Team (Late st Contact Info) Description 06/16/2025 10:20 AM EST Office Visit [facility] [address] [place] [address] Sandy Romero, METALIZING MACHINE OPERATOR [address] [place] [address] documented as of this encounter Visit Diagnoses Not on filedocumented in this encounter Additional Health Concerns Assessment Noted Time PHQ-9 Depression Total Score: 0 05/27/20 25 8:43 AM EST A fall risk assessment has been complete d for the patient 06/27/2023 10:52 AM EST A Body Mass Index follow-up plan has been documented for the patient 05/27/2025 9:06 AM EST documented as of this encounter Care Teams Hand Stripper Relationship Specialty Start Date End Date Sandy Romero, MONY [address] [place] [address] PCP - General Family Medicine 06/14/24 documented as of this encounter
--- OUTSIDE RECORDS SUMMARY | 2025-05-28 17:47 | XMS_ITS | Encounter Summary ---
Author Organization [facility] Address [address] [place] [address] Care Team Providers Care Solar Energy System Installer Helper Name Role Phone Sandy Romero APRN Primary Care Provider [phone] Encounter Details Date Type Department Care Team (Latest Contact Info) Description 05/25/2025 Travel Social History Tobacco Use Types Packs/Day [...] week 06/14/2024 How often do you attend [facility] or mosque services? More than 4 times per year 06/14/2024 Do you belong to any clubs o r organizations such as sikhism groups, unions, fraternal or athletic groups, or [...] Recorded Patient Health Questionnaire-2 Score 0 11/09/2024 [facility] of Occupat ional Health - Occupational Stress [...] any time in the past 12 m [facility], were you homeless or living in a longterm (including now)? No 06/14/2024 Utilities Answer Date [...] Description 06/16/2025 10:20 AM EST Office Visit [facility] [address] [place] [address] Sandy Romero APRN [address] [place] [address] documented as of this encounter Visit [...] documented as of this encounter Care Teams Solar Energy System Installer Helper Relationship Specialty Start Date End Date Sandy Romero APRN [address] [place] [address] PCP - General Family Medicine 06/14/24 documented as of this encounter
--- OUTSIDE RECORDS SUMMARY | 2025-05-28 17:47 | XMS_ITS | Encounter Summary ---
Author Organization [facility] Address [address] [place] [address] Care Team Providers Care Electrician Radio Name Role Phone Sandy Romero APRN Primary [...] Description 08/01/2025 3:30 PM EST Pre-Admission Testing [facility] PREADMISSION T [address] [place] [address] 08/03/2025 7:30 AM EST Hospital Encounter [facility] LABOR DELIVERY [address] [place] [address] Terrie Last MD [address] [facility] [address] [place] [address] 08/03/2025 7:30 AM EST - 08/03/2025 8:30 AM EST Surgery [facility] DELIVERY [address] [place] [address] Terrie Last MD [address] [facility] [address] [place] [address] SECTION PRIMARY Scheduled Procedures Name Priority Associated Diagnoses Date/Ti me SECTION PRIMARY 7:30 AM EST documented as of this encounter Visit Diagnoses Not on filedocumented in this encounter Additional Health Concerns Infection Onset Date Last Indicated Resolved Time COVID (confirmed) 03/29/2025 03/29/2025 documented as of this encounter Care Teams Electrician Radio Relationship Specialty Start Date End Date Sandy Romero APRN [address] [place] [address] PCP - General Nurse Practitioner 03/23/25 documented as of this encounter
--- OUTSIDE RECORDS SUMMARY | 2025-05-28 17:47 | XMS_ITS | Clinical Summary ---
Author Organization [facility] Address [address] [place] [address] Care Team Providers Care Tufter Name Role Phone Sandy Romero APRN Primary Care Provider [phone] Allergies Active Allergy Reactions Criticality Noted Date Comments Ceftriaxone Swelling,Hives,Rash High 08/09/2009 Rash and swelling Sulfamethoxazole-Trimet hoprim Hives Medium 03/13/2022 Medications fluticasone (Flonase) 50 MCG/ACT nasal sprayIndications:D ysfunction of both eustachian tubes Administer 1 spray into each nostril 1 (one) time each day. Shake gently. Before first use, prime pump. After use, clean tip and replace cap. 16 g 08/13/19 Active Additional Information Patient not taking.Reported on 05/27/2025 azelastine (Astelin) 0.1 % nasal sprayIndications:D ysfunction of both eustachian tubes Administer 1 spray into each nostril 2 (two) times a day. Use in each nostril as directed 30 mL 12 08/13/19 Active Additional Information Patient not taking.Reported on 05/27/2025 aspirin (ASPIR) 81 MG EC tablet Take 1 tablet by mouth daily. Active levothyroxine (Synthroid, Levoxyl) 25 MCG tablet Take 1 tablet by mouth daily. 01/06/20 Active famotidine (Pepcid) 20 MG tablet Take 1 tablet by mouth 2 times a day as needed. Active Cetirizine HCl (ZYRTEC ALLERGY PO) Take 1 tablet by mouth daily. Active MAGNESIUM PO Take 1 tablet by mouth nightly. Active MV-Min-Fe Fum-FA-DHA ( 1 PO) Take 1 tablet by mouth daily. Active doxylamine (Unisom) 25 MG tablet Take 1 tablet by mouth at night as needed for sleep. Active Pyridoxine HCl (VITAMIN B-6 PO) Take 1 tablet by mouth daily. Active erythromycin (Romycin) 5 MG/GM ophthalmic ointmentIndication s:Bacterial conjunctivitis of left eye Apply 1 Application to left eye 4 times a day for 7 days. 3.5 g 05/27/20 025 Active Active Problems Problem Noted Date Diagnosed Date Allergic rhinitis 06/13/2024 Atopic dermatitis 06/13/2024 Hamstring tightness of both lower extremities Hip flexor tightness 06/27/2023 Complex tear of lateral meniscus of knee, sequel a 03/11/2023 Estimated Date of Delivery Comme nts Yes 08/07/2025 Resolved Problems Problem Noted Date Diagnosed Date Resolved Date Acute pain of left knee 03/11/202303/15 Encounters Date Type Department Care Team Description 05/27/2025 8:40 AM EST Office Visit [facility] [address] [place] [phone] Dhara Morillo, MONY, ESME Bacterial conjunctivitis of left eye (Primary Dx) 05/27/2025 Travel 05/25/2025 1:45 PM EST Clinical Support [facility] [address] [place] [address] Encounter for immunization (Primary Dx) 05/25/2025 Travel from Last 3 Months Immunizations Immunization Administration Dates Next Due Hep A, Adult 01/27/2015 Hep B, adult 01/27/2015 Influenza, seasonal, injectable, preservative fr ee 05/25/2025 PPD Skin Test (TB Skin Test) 01/27/2015 Rho (D) Immune Globulin 08/22/2023,07/03/2018 Tdap 05/25/2025,02/26/2023 Family History Medical History Relation Name Comments Colonic polyp Father Alberto Basilio Diabetes Father Alberto Basilio Cancer Maternal Grandfather Murphy Salvador Arthritis Maternal Grandmother Laure Salvador Colon polyps Mother Skin cancer Mother Diabetes Paternal Grandmother Pippa Basilio Miscarriages / Stillbirths Paternal Grandmother Pippa Basilio No Known Problems Son Relation Name Status Comments Father Alberto Basilio Maternal Grandfather Murphy Salvador Maternal Grandmother Laure Salvador Mother Alive Paternal Grandmother Pippa Basilio Son Alive Social History Tobacco Use Types Packs/Day Years [...] any clubs o r organizations such as judaism groups, unions, fraternal or athletic groups, or [...] Recorded Patient Health Questionnaire-2 Score 0 05/27/2025 [facility] of Occupat ional Health - Occupational Stress [...] any time in the past 12 m [facility], were you homeless or living in a jail (including now)? No 05/27/2025 [facility] Utilities Answer Date Recorded In the past [...] file Not on file Not on file Last Filed Vital Signs Vital Sign Reading [...] Mass Index 25.85 05/27/2025 8:37 AM EST Plan of Treatment Upcoming Encounters Date Type Department Care Team (Late st Contact Info) Description 06/16/2025 10:20 AM EST Office Visit [facility] [address] [place] [address] Sandy Romero, MANDARIN CHINESE TEACHER [address] [place] [address] Health Maintenance Due Date Last Done Comments [facility]-Infant/Child/Adol SDOH Screenings 1988 [facility]-Varicella Vaccines (1 of 2 - 13+ 2-dose series) 2001 [facility]-Hepatitis B Vaccines (2 of 3 - 19+ 3-dose series) 02/24/2015 01/27/2015 HPV Vaccines (1 - 3-dose SCDM series) 11/20/2015 [facility]-HPV/Cotest 2018 [facility]-Cervical Cancer Screening 12/27/2024 [facility]-Pap Smear 12/27/2024 12/27/2021 [facility]-RSV Vaccine: 60+ Years or (1 - Risk 1-dose series) 06/12/2025 [facility]- SDOH Screenings 11/24/2025 [facility]-Adult SDOH Screenings 11/24/2025 05/27/2025 [facility]-Depression Screening 05/27/2026 05/27/2025, 05/14 [facility]-DTaP,Tdap,and Td Vaccines (3 - Td or Tdap) 05/25/2035 05/25/2025, 02/26/2023 [facility]-Zoster Vaccines (1 of 2) 2038 [facility]-Hepatitis A Vaccines Aged Out 01/27/2015 No longer eligible based on patient's age to complete this topic [id number] Vaccine Discontinued 11/21/2020, 10/27/19 21 [facility]-HIV Screening Completed 06/14/2024 [facility]-Hepatitis C Screening Completed 01/03/2025, 08/2023 [facility]-Influenza Vaccine Completed 05/25/2025 [facility]-Obesity Intervention Completed 025, 05/25/2025, 11/09/2024, Additional history exists [facility]-HIB Vaccines Aged Out No longer e ligible based on patient's age to complete this topic [facility]-IPV Vaccines Aged Out No longer e ligible based on patient's age to complete this topic [facility]-Pneumococcal Vaccine: Pediatrics (0 to 5 Years) and At-Risk Patients (6 to 49 Years) Aged Out No longer eligible based on patient's age to complete this topic [facility]-Rotavirus Vaccines Aged Out No lo nger eligible based on patient's age to complete this topic Procedures Procedure Name Priority Date/Time Associated Diagnosis Comments HEPATITIS C ANTIBODY W/REFLEX TO HCV QUANT PCR Routine 06/14/2024 11:10 AM EST Need for hepatitis C screening test HIV 1/2 ANTIBODY/ANTIGEN SCREEN WITH REFLEX TO HIV I/II DIFFERENTIATION Routine 06/14/2024 11:10 AM EST Screening for human immunodeficiency virus PAP SMEAR EXTERNAL RESULT 12/27/2021 from Last 3 Months or Most Recently Relevant to Health Maintenance Results * HIV 1 & 2 Antibody/Antigen Screen (06/14/2024 11:10 AM EST) HIV 1 & 2 Antibody/Antigen Screen Non Reactive Non Reactive 06/14/2024 1:34 PM EST [facility] Comment:Screening for HIV 1 & 2 antibodies, and P24 antigen is NONREACTIVE. No confirmatory testing is required. Blood Venous blood specimen / Unknown Venipuncture / Unknown 06/14/2024 11:10 AM EST 06/14/2024 11:10 AM EST Sandy Romero MANDARIN CHINESE TEACHER LAB BLOOD ORDERABLES Final Result Performing Organization Address [facility] Co de Phone Number [facility] [address] [place] [address] * Hepatitis C Antibody w/Reflex to HCV Quant PCR (06/14/2024 11:10 AM EST) Hepatitis C Antibody Negative Negative 06/14/2024 1:34 PM EST [facility] Blood Venous blood specimen / Unknown Venipuncture / Unknown 06/14/2024 11:10 AM EST 06/14/2024 11:10 AM EST Sandy Romero APRN LAB BLOOD ORDERABLES Final Result Performing Organization Address City/[facility] Co de Phone Number [facility] [address] [place] [address] * Pap Smear External Result (12/27/2021) Narrative 12/27/2021 Ordered by an unspecified provider. External Provider LAB CYTOLOGY ORDERABLES Final Result from Last 3 Months or Most Recently Relevant to Health Maintenance Insurance [employer] Care Teams Tufter Relationship Specialty Start Date End Date Sandy Romero APRN [address] [place] [address] PCP - General Family Medicine 06/14/24
--- OUTSIDE RECORDS SUMMARY | 2025-05-28 17:47 | XMS_ITS | Clinical Summary ---
[facility] Address [address] [place] [id number] Care Team Providers Care Aircraft Log Clerk Name Role Phone Sandy Romero APRN Primary Care Provid er Allergies Active Allergy Reactions Criticality Noted Date Comments Ceftriaxone Swelling 08/22/2023 Encounters Date Type Department Care Team Description 05/25/2025 9:00 AM EST Lab [facility] [address] [place] [address] 29 weeks gestation of ; care, subsequent , second trimester 05/25/2025 Travel 05/18/2025 12:55 PM EST Lab [facility] [address] [place] [address] care, subsequent , second trimester; 24 weeks gestation of 05/18/2025 Travel 03/29/2025 2:13 PM EDT - 03/29/2025 4:56 PM EDT Emergency [facility] [address] [phone] Amadou Wolf MD COVID-19 (Primary Dx); Nausea and vomiting, unspecified vomiting type Discharge Disposition: Home or Self Care 03/29/2025 Travel 03/23/2025 3:25 PM EDT Lab [facility] [address] [place] [address] 03/23/2025 Travel from Last 3 Months Immunizations Immunization Administration Dates Next Due Rho (D) Immune Globulin 08/22/2023 Social History Tobacco Use Types Packs/Day Years [...] on file Sexual Orientation Not on file Last Filed Vital Signs [...] Mass Index 23.76 03/29/2025 2:11 PM EDT Plan of Treatment Upcoming Encounters Date Type Department Care Team (Late st Contact Info) Description 08/01/2025 3:30 PM EST Pre-Admission Testing [facility] T [address] [place] [address] 08/03/2025 7:30 AM EST Hospital Encounter [facility] [address] [place] [phone] Terrie Last MD [address] [place] [address] 08/03/2025 7:30 AM EST - 08/03/2025 8:30 AM EST Surgery [facility] [address] [place] [phone] Terrie Last MD [address] [place] [address] SECTION PRIMARY Scheduled Procedures Name Priority Associated Diagnoses Date/Ti me SECTION PRIMARY 7:30 AM EST Health Maintenance Due Date Last Done Comments ANNUAL PHYSICAL 1988 Annual Gynecologic Pelvic and Breast Exam 1990 INFLUENZA VACCINE 02/11/2025 RSV Vaccine - Adults (1 - Risk 1-dose series) 06/12/2025 TDAP/TD VACCINES (2 - Td or Tdap) 02/26/2033 02/26/2023 HEPATITIS C SCREENING Completed 01/03/2025 , 06/14/2024, 06/14/2024, Additional history exists Pneumococcal Vaccine 0-49 Aged Out No longer eligible based on [...] GLUCOSE FINGERSTICK Routine 05/25/2025 9:01 AM EST ANTIBODY SCREEN Routine 05/18/2025 1:21 PM EST care, subsequent , second trimester 24 weeks gestation of TREPONEMA PALLIDUM AB W/REFLEX RPR Routine 05/18/2025 [...] GLUCOSE FINGERSTICK Routine 05/18/2025 1:19 PM EST BLOOD GAS, VENOUS W/CO-OXIMETRY STAT 03/29/2025 3:37 PM EDT URINALYSIS W/ MICROSCOPIC IF INDICATED (NO CULTURE) STAT 03/29/2025 2:58 PM EDT RESPIRATORY PANEL PCR W/ COVID-19 (SARS-COV-2), BILLIARD TABLE MECHANIC SWAB IN UTM/VTP, 2 HR TAT STAT 03/29/2025 2:47 PM EDT CBC AND DIFFERENTIAL STAT 03/29/2025 2:19 PM EDT LIGHT BLUE TOP STAT 03/29/2025 2:19 PM EDT HILTON TOP STAT 03/29/2025 2:19 PM EDT GOLD TOP - SST STAT 03/29/2025 2:19 PM EDT LAVENDER TOP STAT 03/29/2025 2:19 PM EDT DK GREEN TOP STAT 03/29/2025 2:19 PM EDT BETA HYDROXYBUTYRATE QUANTITATIVE STAT 03/29/2025 2:19 PM EDT HEMOGLOBIN A1C STAT 03/29/2025 2:19 PM EDT CBC WITH AUTO DIFFERENTIAL STAT 03/29/2025 2:19 PM EDT COMPREHENSIVE METABOLIC PANEL STAT 03/29/2025 2:19 PM EDT RAINBOW DRAW STAT 03/29/2025 2:19 PM EDT KLEIHAUER-BETKE STAIN Routine 03/23/2025 2:46 PM EDT 20 weeks gestation of Injury of abdominal wall, sequela HEPATITIS C ANTIBODY Routine 01/03/2025 3:15 PM EDT 9 weeks gestation of care, subsequent , first trimester from Last 3 Months or Most Recently Relevant to Health Maintenance Results * POC Glucose (05/25/2025 12:09 PM EST) Only the most recent of3 resultswithin the time period is included. Glucose 99 70 - 130 mg/dL 05/25/2025 12:11 PM EST [facility] Comment:Serial Number: [id number] Blood 05/25/2025 12:0 9 PM EST 05/25/2025 12:11 PM EST us Terrie Last MD POINT OF CARE TEST ORDERABLES Final Result [facility]
[address] [place] [address], [place] [phone] * GTT 3 Hour (05/25/2025 12:05 PM EST) Glucose, GTT - 3 Hour 97 74 - 140 mg/dL 05/25/2025 1:44 PM EST [facility] Blood Venipuncture / Unknown 05/25/2025 12:05 PM EST 05/25/2025 1:29 PM EST us Terrie Last MD LAB BLOOD ORDERABLES Final Re sult Performing Organization Address City/[facility]/ZIP Co de Phone Number [facility]
[address] [place] [address], * GTT 2 Hour (05/25/2025 11:05 AM EST) Glucose, GTT - 2 Hour 118 74 - 155 mg/dL 05/25/2025 12:57 PM EST [facility] Blood Venipuncture / Unknown 05/25/2025 11:05 AM EST 05/25/2025 12:40 PM EST us Terrie Last MD LAB BLOOD ORDERABLES Final Re sult Performing Organization Address City/[facility]/ZIP Co de Phone Number [facility]
[address] [place] [address], * (ABNORMAL) GTT 1 Hour (05/25/2025 10:05 AM EST) Glucose, GTT - 1 Hour 199(H) 74 - 180 mg/dL 05/25/2025 11:02 AM EST [facility] Blood Venipuncture / Unknown 05/25/2025 10:05 AM EST 05/25/2025 10:16 AM EST us Terrie Last MD LAB BLOOD ORDERABLES Final Re sult [facility]
[address] [place] [address], * GTT Fasting (05/25/2025 9:04 AM EST) [facility] Glucose, GTT - Fasting 103 74 - 106 mg/dL 05/25/2025 9:31 AM EST [facility] Blood Venipuncture / Unknown 05/25/2025 9:04 AM EST 05/25/2025 9:04 AM EST us Terrie Last MD LAB BLOOD ORDERABLES Final Re sult Performing Organization Address City/[facility]/ZIP Co de Phone Number [facility]
[address] [place] [address], * Treponema pallidum AB w/Reflex RPR (05/18/2025 1:21 PM EST) [facility] Treponemal AB Total Non-Reacti ve Non-React sivan 05/18/2025 7:47 PM EST [facility] Blood Venipuncture / Unknown 05/18/2025 1:21 PM EST 05/18/2025 1:21 PM EST Narrative [facility] - 05/18/2025 7:47 PM EST Reactive results will reflex RPR testing. us Terrie Last MD LAB BLOOD ORDERABLES Final Re sult [facility]
[address] [place] [address], * (ABNORMAL) Glucose, Post 50 Gm Glucola (05/18/2025 1:21 PM EST) [facility] Gestational GCT 144(H) 65 - 139 mg/dL 05/18/2025 2:15 PM EST [facility] Blood Venipuncture / Unknown 05/18/2025 1:21 PM EST 05/18/2025 1:21 PM EST us Terrie Last MD LAB BLOOD ORDERABLES Final Re sult [facility]
[address] [place] [address], * (ABNORMAL) CBC (No Diff) (05/18/2025 1:21 PM EST) WBC 12.33(H) 3.40 - 10.80 10*3/mm3 05/18/2025 7:00 PM [facility] RBC 4.18 3.77 - 5.28 10*6/mm3 05/18/2025 7:00 PM [facility] Hemoglobin 13.0 12.0 - 15.9 g/dL 05/18/2025 7:00 PM [facility] Hematocrit 38.2 34.0 - 46.6 % 05/18/2025 7:00 PM [facility] MCV 91.4 79.0 - 97.0 fL 05/18/2025 7:00 PM [facility] MCH 31.1 26.6 - 33.0 pg 05/18/2025 7:00 PM [facility] MCHC 34.0 31.5 - 35.7 g/dL 05/18/2025 7:00 PM [facility] RDW 12.1(L) 12.3 - 15.4 % 05/18/2025 7:00 PM [facility] RDW-SD 39.9 37.0 - 54.0 fl 05/18/2025 7:00 PM [facility] MPV 11.2 6.0 - 12.0 fL 05/18/2025 7:00 PM [facility] Platelets 278 140 - 450 10*3/mm3 05/18/2025 7:00 PM [facility] Blood Venipuncture / Unknown 05/18/2025 1:21 PM EST 05/18/2025 1:21 PM EST us Terrie Last MD LAB BLOOD ORDERABLES Final Re sult Performing Organization Address City/[facility]/ZIP Co de Phone Number [facility]
[address] [place] [address], * Antibody Screen (05/18/2025 1:21 PM EST) [facility] Antibody Screen Negative 05/18/2025 3:06 PM EST [facility] Blood Venipuncture / Unknown 05/18/2025 1:21 PM EST 05/18/2025 1:21 PM EST us Terrie Last MD BLOOD BANK TEST ORDERABLES Fi nal Result Performing Organization Address [facility] Co de Phone Number [facility]
[address] [place] [address], * TSH (05/18/2025 1:21 PM EST) [facility] TSH 1.250 0.270 - 4.200 uIU/mL 05/18/2025 7:47 PM EST [facility] Blood Venipuncture / Unknown 05/18/2025 1:21 PM EST 05/18/2025 1:21 PM EST us Terrie Last MD LAB BLOOD ORDERABLES Final Re sult Performing Organization Address [facility]/ZIP Co de Phone Number [facility]
[address] [place] [address], * (ABNORMAL) T4, Free (05/18/2025 1:21 PM EST) [facility] Free T4 0.83(L) 0.92 - 1.68 ng/dL 05/18/2025 7:47 PM EST [facility] Blood Venipuncture / Unknown 05/18/2025 1:21 PM EST 05/18/2025 1:21 PM EST us Terrie Last MD LAB BLOOD ORDERABLES Final Re sult [facility]
[address] [place] [address], * (ABNORMAL) Blood Gas, Venous With Co-Ox (03/29/2025 3:37 PM EDT) Site Nurse/Dr Draw 03/29/2025 3:36 PM EDT [facility] pH, Venous 7.346 7.310 - 7.410 pH Units 03/29/2025 3:36 PM EDT [facility] pCO2, Venous 40.3(L) 41.0 - 51.0 mm Hg 03/29/2025 3:36 PM EDT [facility] Comment:84 Value below refer ence range pO2, Venous 24.5(L) 27.0 - 53.0 mm Hg 03/29/2025 3:36 PM EDT [facility] Comment:84 Value below refer ence range HCO3, Venous 22.0 22.0 - 28.0 mmol/L 03/29/2025 3:36 PM EDT [facility] Base Excess, Venous -3.4(L) -2.0 - 2.0 mmol/L 03/29/2025 3:36 PM EDT [facility] Hemoglobin, Blood Gas 10.7(L) 14 - 18 g/dL 03/29/2025 3:36 PM EDT [facility] Oxyhemoglobin Venous 41.6 % 03/14 3:36 PM EDT [facility] Methemoglobin Venous 0.5 % 03/14 3:36 PM EDT [facility] Carboxyhemoglobin Venous 1.0 % 03/29/2025 3:36 PM EDT [facility] CO2 Content 23.3 22 - 33 mmol/L 03/29/2025 3:36 PM EDT [facility] Temperature 37.0 03/29/2025 3:36 PM EDT [facility] Barometric Pressure for Blood Gas 03/29/2025 3:36 PM EDT [facility] Comment:N/A Modality Room Air 03/29/2025 3:36 PM EDT [facility] FIO2 21 % 03/29/2025 3:36 PM EDT [facility] Ventilator Mode 3:36 PM EDT [facility] Comment:Meter: [id number] Retail Reset Merchandiser: [id number] Venous Blood 03/29/2025 3:37 PM EDT 03/29/2025 3:37 PM EDT us Amadou Wolf MD LAB BLOOD ORDERABLES Final Result [facility]
[address] [facility] [address] [place] [address], [place] * (ABNORMAL) Urinalysis With Microscopic If Indicated (No Culture) - Urine, Clean Catch (03/29/2025 2:58 PM EDT) Color, UA Yellow Yellow, Straw 03/29/2025 3:00 PM EDT [facility] Appearance, UA Clear Clear 03/29/2025 3:00 PM EDT [facility] pH, UA 6.0 5.0 - 8.0 03/29/2025 3:00 PM EDT [facility] Specific [place], UA >=1.030 1.005 - 1.030 03/29/2025 3:00 PM EDT [facility] Glucose, UA Negative Negative 03/29/2025 3:00 PM EDT [facility] Ketones, UA 15 mg/dL (1+)(A) Negative 03/29/2025 3:00 PM EDT [facility] Bilirubin, UA Negative Negative 03/29/2025 3:00 PM EDT [facility] Blood, UA Negative Negative 03/29/2025 3:00 PM EDT [facility] Protein, UA Trace(A) Negative 03/29/2025 3:00 PM EDT [facility] Leuk Esterase, UA Negative Negative 03/29/2025 3:00 PM EDT [facility] Nitrite, UA Negative Negative 03/29/2025 3:00 PM EDT [facility] Urobilinogen, UA 0.2 E.U./dL 0.2 - 1.0 E.U./dL 03/29/2025 3:00 PM EDT [facility] Urine Urine specimen obtained by clean catch procedure / Unknown 03/29/2025 2:58 PM EDT 03/29/2025 2:58 PM EDT Narrative [facility] - 03/29/2025 3:00 PM EDT Urine microscopic not indicated. us Kerry Solorzano Richard PA-C URINE ORDERABLES Final Res ult [facility]
[address] [address], * (ABNORMAL) Respiratory Panel PCR w/COVID-19(SARS-CoV-2) SHARAN/MUNDO/EDISON/PAD/COR/BRUNA In-House, BILLIARD TABLE MECHANIC Swab in UTM/VTM, 2 HR TAT - Swab, Nasopharynx (03/29/2025 2:47 PM EDT) ADENOVIRUS, PCR Not Detected Not Detected BIOFIRE FILMARRAY 03/29/2025 3:48 PM EDT [facility] Coronavirus 229E Not Detected Not Detected BIOFIRE FILMARRAY 03/29/2025 3:48 PM EDT [facility] Coronavirus HKU1 Not Detected Not Detected BIOFIRE FILMARRAY 03/29/2025 3:48 PM EDT [facility] Coronavirus NL63 Not Detected Not Detected BIOFIRE FILMARRAY 03/29/2025 3:48 PM EDT [facility] Coronavirus OC43 Not Detected Not Detected BIOFIRE FILMARRAY 03/29/2025 3:48 PM EDT [facility] COVID19 Detected(AA ) Not Detected - Ref. Range BIOFIRE FILMARRAY 03/29/2025 3:48 PM EDT [facility] Human Metapneumovirus Not Detected Not Detected BIOFIRE FILMARRAY 03/29/2025 3:48 PM EDT [facility] Human Rhinovirus/Enterov irus Not Detected Not Detected BIOFIRE FILMARRAY 03/29/2025 3:48 PM EDT [facility] Influenza A PCR Not Detected Not Detected BIOFIRE FILMARRAY 03/29/2025 3:48 PM EDT [facility] Influenza B PCR Not Detected Not Detected BIOFIRE FILMARRAY 03/29/2025 3:48 PM EDT [facility] Parainfluenza Virus 1 Not Detected Not Detected BIOFIRE FILMARRAY 03/29/2025 3:48 PM EDT [facility] Parainfluenza Virus 2 Not Detected Not Detected BIOFIRE FILMARRAY 03/29/2025 3:48 PM EDT [facility] Parainfluenza Virus 3 Not Detected Not Detected BIOFIRE FILMARRAY 03/29/2025 3:48 PM EDT [facility] Parainfluenza Virus 4 Not Detected Not Detected BIOFIRE FILMARRAY 03/29/2025 3:48 PM EDT [facility] RSV, PCR Not Detected Not Detected BIOFIRE FILMARRAY 03/29/2025 3:48 PM EDT [facility] Bordetella pertussis pcr Not Detected Not Detected BIOFIRE FILMARRAY 03/29/2025 3:48 PM EDT [facility] Bordetella parapertussis PCR Not Detected Not Detected BIOFIRE FILMARRAY 03/29/2025 3:48 PM EDT [facility] Chlamydophila pneumoniae PCR Not Detected Not Detected BIOFIRE FILMARRAY 03/29/2025 3:48 PM EDT [facility] Mycoplasma pneumo by PCR Not Detected Not Detected BIOFIRE [employer] 03/29/2025 3:48 PM EDT [facility] Swab Nasopharyngeal structure / Unknown Collection / Unknown 03/29/2025 2:47 PM EDT 03/29/2025 2:51 PM EDT [facility] - 03/29/2025 3:48 PM EDT In [...] MICROBIOLOGY - GENERAL ORD ERABLES Final Result Performing Organization Address [facility] Co de Phone Number [facility]
[address] [place] [address], [place] * Beta Hydroxybutyrate Quantitative (03/29/2025 2:19 PM EDT) Beta-Hydroxybu tyrate Quant 0.243 0.020 - 0.270 mmol/L 03/29/2025 3:43 PM EDT [facility] Blood Line / Unknown 03/29/2025 2: 19 PM EDT 03/29/2025 2:22 PM EDT Narrative [facility] - 03/29/2025 3:43 PM EDT In the assessment of possible diabetic ketoacidosis, the test should be interpreted along with other clinical and laboratory findings. A level greater than 1 mmol/L should require further evaluation and levels of more than 3 mmol/L require immediate medical review. us Kerry Richard PA-C LAB BLOOD ORDERABLES Final Result Performing Organization Address [facility] Co de Phone Number [facility]
[address] [place] [address], [place] * Hilton Top (03/29/2025 2:19 PM EDT) Pathologist [facility] Extra Tube Hold for add-ons. 03/29/2025 2:31 PM EDT [facility] Comment:Auto resulted. Blood Line / Unknown 03/29/2025 2: 19 PM EDT 03/29/2025 2:22 PM EDT us Amadou Wolf MD LAB BLOOD ORDER ONLY Final Result [facility]
[address] [facility] [address] [place] [address], [place] * Gold Top - SST (03/29/2025 2:19 PM EDT) Extra Tube Hold for add-ons. 03/29/2025 2:31 PM EDT [facility] Comment:Auto resulted. Blood Line / Unknown 03/29/2025 2: 19 PM EDT 03/29/2025 2:22 PM EDT Amadou Wolf MD LAB BLOOD ORDER ONLY Final Result Performing Organization Address City/[facility]/ZIP Co de Phone Number [facility]
[address] [place] [address], [place] * Green Top (Gel) (03/29/2025 2:19 PM EDT) Extra Tube Hold for add-ons. 03/29/2025 2:31 PM EDT [facility] Comment:Auto resulted. Blood Line / Unknown 03/29/2025 2: 19 PM EDT 03/29/2025 2:22 PM EDT Amadou Wolf MD LAB BLOOD ORDER ONLY Final Result Performing Organization Address City/[facility]/ZIP Co de Phone Number [facility]
[address] [facility] [address] [place] [address], [place] * (ABNORMAL) CBC Auto Differential (03/29/2025 2:19 PM EDT) WBC 9.32 3.40 - 10.80 10*3/mm3 03/29/2025 2:49 PM EDT [facility] RBC 4.00 3.77 - 5.28 10*6/mm3 03/29/2025 2:49 PM EDT [facility] Hemoglobin 11.9(L) 12.0 - 15.9 g/dL 03/29/2025 2:49 PM [facility] Hematocrit 35.7 34.0 - 46.6 % [facility] MCV 89.3 79.0 - 97.0 fL 03/29/2025 2:49 [facility] MCH 29.8 26.6 - 33.0 pg 03/29/2025 2:49 PM [facility] MCHC 33.3 31.5 - 35.7 g/dL 03/29/2025 2:49 PM [facility] RDW 13.5 12.3 - 15.4 % 03/29/2025 2:49 PM [facility] RDW-SD 45.0 37.0 - 54.0 fl 03/29/2025 2:49 PM [facility] MPV 11.2 6.0 - 12.0 fL 03/29/2025 2:49 PM [facility] Platelets 218 140 - 450 10*3/mm3 03/29/2025 2:49 PM [facility] Neutrophil % 87.3(H) 42.7 - 76.0 % 03/29/2025 2:49 PM [facility] Lymphocyte % 3.5(L) 19.6 - 45.3 % 03/29/2025 2:49 PM [facility] Monocyte % 7.5 5.0 - 12.0 % 03/29/2025 2:49 PM [facility] Eosinophil % 0.2(L) 0.3 - 6.2 % 03/29/2025 2:49 PM [facility] Basophil % 0.3 0.0 - 1.5 % 03/29/2025 2:49 PM [facility] Immature Grans % 1.2(H) 0.0 - 0.5 % 03/29/2025 2:49 PM [facility] Neutrophils, Absolute 8.13(H) 1.70 - 7.00 10*3/mm3 03/29/2025 2:49 PM EDT [facility] Lymphocytes, Absolute 0.33(L) 0.70 - 3.10 10*3/mm3 03/29/2025 2:49 PM EDT [facility] Monocytes, Absolute 0.70 0.10 - 0.90 10*3/mm3 03/29/2025 2:49 PM EDT [facility] Eosinophils, Absolute 0.02 0.00 - 0.40 10*3/mm3 03/29/2025 2:49 PM EDT [facility] Basophils, Absolute 0.03 0.00 - 0.20 10*3/mm3 03/29/2025 2:49 PM EDT [facility] Immature Grans, Absolute 0.11(H) 0.00 - 0.05 10*3/mm3 03/29/2025 2:49 PM EDT [facility] Blood Line / Unknown 03/29/2025 2: 19 PM EDT 03/29/2025 2:22 PM EDT us Kerry Richard PA-C LAB BLOOD ORDERABLES Final Result [facility]
[address] [facility] [address] [place] [address], [place] * Lavender Top (03/29/2025 2:19 PM EDT) Extra Tube hold for add-on 03/29/2025 2:31 PM EDT [facility] Comment:Auto resulted Blood Line / Unknown 03/29/2025 2: 19 PM EDT 03/29/2025 2:22 PM EDT us Amadou Wolf MD LAB BLOOD ORDER ONLY Final Result [facility]
[address] [facility] [address] [place] [address], [place] * Light Blue Top (03/29/2025 2:19 PM EDT) Extra Tube Hold for add-ons. 03/29/2025 2:31 PM EDT [facility] Comment:Auto resulted Blood Line / Unknown 03/29/2025 2: 19 PM EDT 03/29/2025 2:22 PM EDT Amadou Wolf MD LAB BLOOD ORDER ONLY Final Result Performing Organization Address City/[facility]/ZIP Co de Phone Number [facility]
[address] [place] [address], [place] * Hemoglobin A1c (03/29/2025 2:19 PM EDT) Hemoglobin A1C 4.99 4.80 - 5.60 % 03/29/2025 3:45 PM EDT [facility] Blood Line / Unknown 03/29/2025 2: 19 PM EDT 03/29/2025 2:22 PM EDT Narrative [facility] - 03/29/2025 3:45 PM EDT Hemoglobin A1C Ranges: Increased Risk for Diabetes 5.7% to 6.4% Diabetes >= 6.5% Diabetic Goal < 7.0% us Kerry Richard PA-C LAB BLOOD ORDERABLES Final Result Performing Organization Address [facility]/ZIP Co de Phone Number [facility]
[address] [place] [address], [place] * (ABNORMAL) Comprehensive Metabolic Panel (03/29/2025 2:19 PM EDT) Glucose 162(H) 65 - 99 mg/dL 03/29/2025 3:00 PM EDT [facility] BUN 8.7 6.0 - 20.0 mg/dL 03/29/2025 3:00 PM EDT [facility] Creatinine 0.66 0.57 - 1.00 mg/dL 03/29/2025 3:00 PM EDT [facility] Sodium 138 136 - 145 mmol/L 03/29/2025 3:00 PM EDT [facility] Potassium 3.8 3.5 - 5.2 mmol/L 03/29/2025 3:00 PM [facility] Chloride 104 98 - 107 mmol/L 03/29/2025 3:00 PM [facility] CO2 18.6(L) 22.0 - 29.0 mmol/L 03/29/2025 3:00 PM [facility] Calcium 8.7 8.6 - 10.5 mg/dL 03/29/2025 3:00 PM [facility] Total Protein 6.1 6.0 - 8.5 g/dL 03/29/2025 3:00 PM [facility] Albumin 3.7 3.5 - 5.2 g/dL 03/29/2025 3:00 PM [facility] ALT (SGPT) 33 1 - 33 U/L 03/29/2025 3:00 PM [facility] AST (SGOT) 36(H) 1 - 32 U/L 03/29/2025 3:00 PM [facility] Alkaline Phosphatase 59 39 - 117 U/L 03/29/2025 3:00 PM [facility] Total Bilirubin 0.3 0.0 - 1.2 mg/dL 03/29/2025 3:00 PM [facility] Globulin 2.4 gm/dL 03/29/2025 3:00 PM [facility] A/G Ratio 1.5 g/dL 03/29/2025 3:00 PM [facility] BUN/Creatinine Ratio 13.2 7.0 - 25.0 03/29/2025 3:00 PM [facility] Anion Gap 15.4(H) 5.0 - 15.0 mmol/L 03/29/2025 3:00 PM [facility] eGFR 116.8 >60.0 mL/min/1.7 3 03/29/2025 3:00 PM [facility] Blood Line / Unknown 03/29/2025 2: 19 PM EDT 03/29/2025 2:22 PM EDT Narrative [facility] - 03/29/2025 3:00 PM EDT GFR [...] include race as a factor us Kerry ALVES-G[facility] LAB BLOOD ORDERABLES Final Result [facility]
[address] [address], * Kleihauer-Betke Stain (03/23/2025 2:46 PM EDT) Pathologist [facility] KB Stain Result NO CELLS SEEN NO CELLS SEEN DISK DIFFUSION 03/23/2025 5:05 PM EDT [facility] Blood Venipuncture / Unknown 03/23/2025 2:46 PM EDT 03/23/2025 2:46 PM EDT us Terrie Last MD BLOOD BANK TEST ORDERABLES Fi nal Result Performing Organization Address City/[facility]/ZIP Co de Phone Number [facility]
[address] [place] [address], * Hepatitis C Antibody (01/03/2025 3:15 PM EDT) [facility] Hepatitis C Ab Non-Reacti ve Non-Reacti ve 01/03/2025 6:59 PM EDT [facility] Blood Venipuncture / Unknown 01/03/2025 3:15 PM EDT 01/03/2025 3:21 PM EDT Terrie Last MD LAB BLOOD ORDERABLES Final Re sult [facility]
[address] [place] [address], from Last 3 Months or Most Recently Relevant to Health Maintenance Additional Health Concerns Infection Onset Date Last Indicated COVID (confirmed) 03/29/2025 03/29/2025 Insurance [facility] [employer] [facility] PPO Member Subscriber Plan / Payer (Ef fective 2019-Present) Name:Kerry Todd Relation to Subscriber:Spouse Name:JOO TODD Date of :1983 (Home) Address: [facility] [place] [address] Payer ID:[id number] (NAIC) Type:Not on file Address: [address] [place] [id number] Care Teams Aircraft Log Clerk Relationship Specialty Start Date End Date Sandy Romero APRN [address] [place] [address] PCP - General Nurse Practitioner 03/23/25
--- OUTSIDE RECORDS SUMMARY | 2025-05-28 17:48 | XMS_ITS | Encounter Summary ---
[facility] Address [address] [place] [address] Care Team Providers Care Therapeutic Support Staff Name Role Phone Sandy Romero APRN Primary Care Provid er Encounter Details Date Type Department Care Team (Latest Contact Info) Description 05/18/2025 Travel Social History Tobacco Use Types Packs/Day [...] Description 08/01/2025 3:30 PM EST Pre-Admission Testing [facility] PREADMISSION T [address] [place] [address] 08/03/2025 7:30 AM EST Hospital Encounter [facility] LABOR DELIVERY [address] [place] [address] Terrie Last MD [address] [facility] [address] [place] [address] 08/03/2025 7:30 AM EST - 08/03/2025 8:30 AM EST Surgery [facility] DELIVERY [address] [place] [id number] Terrie Last MD [address] [facility] [address] [place] [address] SECTION PRIMARY Scheduled Procedures Name Priority Associated Diagnoses Date/Ti me SECTION PRIMARY 7:30 AM EST documented as of this encounter Visit Diagnoses Not on filedocumented in this encounter Additional Health Concerns Infection Onset Date Last Indicated Resolved Time COVID (confirmed) 03/29/2025 03/29/2025 documented as of this encounter Care Teams Therapeutic Support Staff Relationship Specialty Start Date End Date Sandy Romero APRN [address] [place] [id number] PCP - General Nurse Practitioner 03/23/25 documented as of this encounter
--- NOTE | 2025-05-28 18:00 | ECG_ITS ---
APPROVED REPORT Exam: Resting ECG HR:101 bpm ECG Measurements Heart Rate 101 AXES ME 125 P 76 QRSd 91 QRS 77 QT 340 T 51 QTc 398 Conclusion SINUS TACHYCARDIA POSSIBLE LEFT ATRIAL ENLARGEMENT [-0.1mV P-WAVE IN V1/V2] POSSIBLE RIGHT VENTRICULAR CONDUCTION DELAY [RSR (QR) IN V1/V2] ABNORMAL RHYTHM ECG Electronically signed by : ISAAK TRUONG, 05/31/2025 15:38:20
[2025-05-28 18:17] LABS: Hematocrit 33.5 % (37.0-47.0); Hemoglobin 11.2 g/dL (12.2-16.2); Immature Granulocytes % 1.4 %; Mean Corpuscular HGB Conc 33.4 g/dL (31.8-35.4); Mean Corpuscular Hemoglobin 30.4 pg (27.0-31.2); Mean Corpuscular Volume 90.8 fl (81-99); Nucleated Red Blood Cells % 0 %; Platelet Count 253 K/mm3 (142-424); Red Blood Count 3.69 M/mm3 (4.20-5.40); Red Cell Distribution Width-SD 41.4 fL; White Blood Count 10.2 K/mm3 (4.8-10.8)
[2025-05-28 18:22] LABS: Alanine Aminotransferase 21 U/L (12-78); Albumin Level 3.4 g/dl (3.5-5.0); Albumin/Globulin Ratio 1.3 (1.1-1.8); Alkaline Phosphatase 87 U/L (38-126); Anion Gap 5.8 mEq/L (5-15); Aspartate Amino Transferase 27 U/L (14-36); Bilirubin,Total 0.3 mg/dl (0.2-1.3); Blood Urea Nitrogen 12 mg/dl (7-17); Calcium 8.8 mg/dl (8.4-10.2); Carbon Dioxide 24 mmol/L (22.0-30.0); Chloride 104 mmol/L (98-107); Creatinine Clearance Estimated 139 mL/min (50-200); Creatinine,Serum 0.60 mg/dl (0.52-1.04); Estimated Glomerular Filt Rate 113 ml/min (>60); GFR (African American) 137 ML/MIN (>60); Globulin 2.7 g/dL (1.3-3.2); Glucose 96 mg/dl (74-100); Lipase 92 U/L (23-300); Potassium 3.8 mmoL/L (3.5-5.1); Sodium 130 mmol/L (136-145); Total Protein,Serum 6.1 g/dl (6.3-8.2)
[2025-05-28 18:26] LABS: D-Dimer 0.92 ug/mL (0.0-0.5)
--- NOTE | 2025-05-28 18:33 | CT_ITS ---
PROCEDURE INFORMATION: Exam: CTA Chest With Contrast Exam date and time: 05/28/2025 6:57 PM Age: 34 years old Clinical indication: Abnormal findings; Other: Elevated d dimer, ; Additional info: High risk pe, dimer elevated TECHNIQUE: Imaging protocol: Computed tomographic angiography of the chest with contrast. Exam focused on the arteries. 3D rendering (Not supervised by radiologist): MIP and/or 3D reconstructed images were created by the technologist. Radiation optimization: All CT scans at this facility use at least one of these dose optimization techniques: automated exposure control; mA and/or kV adjustment per patient size (includes targeted exams where dose is matched to clinical indication); or iterative reconstruction. Contrast material: ISOVUE 370; Contrast volume: 70 ml; Contrast route: INTRAVENOUS (IV); COMPARISON: No relevant prior studies available. FINDINGS: Pulmonary arteries: Normal. No pulmonary emboli. Aorta: Unremarkable. No aortic aneurysm. No aortic dissection. Lungs: Unremarkable. No consolidation. No masses. Pleural spaces: Unremarkable. No pneumothorax. No pleural effusion. Heart: Unremarkable. No cardiomegaly. No pericardial effusion. Lymph nodes: Unremarkable. No enlarged lymph nodes. Diaphragm: Small-sized hiatal hernia. Bones/joints: Unremarkable. No acute fracture. Soft tissues: Unremarkable. IMPRESSION: No acute thoracic abnormality.
[2025-05-28 18:36] LABS: Troponin I < 0.01 ng/ml (0.00-0.034)
[2025-05-28] MEDS: IOPAMIDOL-370 (76%);100ML BOTTLE 70 ML IV (19:04)
[2025-05-28] MEDS: 0.9 % SODIUM CHLORIDE 50 ML VIAL 40 ML IV (19:04)
[2025-05-28] MEDS: SODIUM CHLORIDE 0.9% 10ML SYR (RAD ONLY) 10 ML IV (19:04)
[2025-05-28 19:20] VITALS: BP 114/70; PULSE 95; RESP 16; O2SAT 100
[2025-05-28 19:31] VITALS: PULSE 92
[2025-05-28 20:20] VITALS: BP 113/69; PULSE 92; RESP 16; O2SAT 99
--- NOTE | 2025-05-28 20:29 | HMH.EDCP ---
Discharge Plan Disposition Patient Disposition: Home, Self-Care Condition: Good Prescriptions Prescriptions: No Action 1 mg Tablet 1 tab PO DAILY Referrals Follow up/Referrals: Willem Danielson MD [Primary Care Provider, Internal Medicine] - See instructions Activity Restrictions/Add. Instructions Additional Instructions/Restrictions: Your heart enzymes and CT scan were normal. I want you to follow-up with your SILVICULTURIST for further monitoring of your symptoms. If you have any new or worsening symptoms please return to the emergency department for further evaluation Clinical Impressions Clinical Impression: Chest pain Print Language Print Language: Guinean Discharge ED Provider: Edmond Mott General Chief Complaint: Chest Pain Stated Complaint: chest pain Time Seen by Provider: 05/28/25 17:47 Mode of Arrival: Ambulatory Source of Information: Patient Description of Symptoms (Recalled from ER Triage Doc. by RN): patient presents for chest pain that staretd around noon today. she rates her pain 5/10 in the left chest. the pain radiates down her left arm and into her back. no prior heart history. History of Present Illness HPI narrative: This is a 34-year-old female patient, with no significant past medical history who is presenting to the emergency department today for evaluation of chest pain. Patient is G5, P1 and currently 30 weeks . She states that earlier today she began experiencing left-sided chest pain that radiates into the back on the left side. She has not had much in the way of shortness of breath. She has not had any lower extremity edema or erythema. She is not currently on estrogen or progesterone. She did not require IVF to get . She has had no cough or production of phlegm. She does tell me that she has had some nosebleeds recently and she intermittently has hemoptysis and she is unsure if this is related to the nosebleeds or to her chest pain. Related Data Home Medications ?Medication ?Instructions ?Recorded ?Confirmed [id number] 1 mg 1 tab PO DAILY vitamins 07/30/23 07/30/23 tablet Allergies Allergy/AdvReac Type Severity Reaction Status Date / Time ceftriaxone (From Rocephin) Allergy Verified 07/30/23 14:53 [facility] Disclaimer: The information contained in this section may have been updated after the patient was seen, as this information can be updated by other users. Social History (Updated 06/10/22 @ 14:36 by Horacio Mendez APRN) Smoking Status: Never smoker alcohol intake: never current occupational status: employed Travel in the last 8 weeks?: None Have you lived/traveled outside US in past 30 days?: No Contact w/someone who lives/traveled outside US past 30 days?: No Exposure to someone with infectious disease in past 14 days?: No Do you have a fever (greater than 100.4 F or 38 C)?: No Have you tested positive for COVID-19?: No Exposed to someone with COVID-19 in past 14 days?: No Do you have a sore throat?: No Do you have a cough?: No Do you have any weakness?: No Do you have any diarrhea?: No Are you experiencing any unusual bleeding?: No Do you have any muscle aches/pain?: No Do you have any abdominal pain?: No Are you experiencing loss of taste or smell?: No ROS Obtained: Yes Systems reviewed as appropriate & no additional complaints except as documented Physical Exam General General appearance: other (See MDM) Respiratory Respiratory exam: Present other (See MDM) Cardiovascular Cardiovascular exam: Present other (See MDM) Neurological Exam Neurological exam: Present other (See MDM) HEART Score HEART Score HEART Score assessment performed?: Yes History (anamnesis): Slightly suspicious ECG: Normal Age: <45 years Risk factors: No known risk factors Troponin: </= normal limit HEART Score: 0 Critical Care Critical Care Time Critical Care Time: No Medical Decision Making Medical Records Medical records reviewed: Yes I reviewed the patient's medical records. Laureano Inquiry Pt receiving controlled substance: No Laureano was queried for this patient: No Vital Signs Vital Signs: 05/28/25 17:29 05/28/25 19:20 05/28/25 19:31 Temperature 98.2 F Temperature Source Temporal Artery Scan Pulse Rate 95 H 92 H Pulse Rate [Right Radial] 107 H Respiratory Rate 18 16 Blood Pressure 114/70 Blood Pressure [Right Arm] 108/73 L Blood Pressure Mean [Right Arm] 84 Blood Pressure Source [Right Arm] Automatic Cuff Blood Pressure Position [Right Arm] Sitting 02 Sat by Pulse Oximetry 100 100 Oxygen Delivery Method Room Air Room Air 05/28/25 20:20 05/28/25 21:52 05/28/25 22:03 Temperature 98.4 F Temperature Source Pulse Rate 92 H 95 H 90 Pulse Rate [Right Radial] Respiratory Rate 16 19 14 Blood Pressure 113/69 113/77 113/63 Blood Pressure [Right Arm] Blood Pressure Mean [Right Arm] Blood Pressure Source [Right Arm] Blood Pressure Position [Right Arm] 02 Sat by Pulse Oximetry 99 100 Oxygen Delivery Method Room Air Room Air Room Air Lab Data Labs: Lab Results 05/28/25 17:53: WBC 10.2, RBC 3.69 L, Hgb 11.2 L, Hct 33.5 L, MCV 90.8, MCH 30.4, MCHC 33.4, RDW 12.6, Plt Count 253, MPV 10.5 H, Neut % (Auto) 70.5, Lymph % (Auto) 17.0, [place] % (Auto) 8.7, Eos % (Auto) 2.0, Baso % (Auto) 0.4, Neut # (Auto) 7.2, Lymph # (Auto) 1.7, [place] # (Auto) 0.9, Eos # (Auto) 0.2, Baso # (Auto) 0.0, D-Dimer 0.92 H, Sodium 130 L, Potassium 3.8, Chloride 104, Carbon Dioxide 24, Anion Gap 5.8, BUN 12, Creatinine 0.60, Estimated Creat Clear 139, Estimated GFR 113, Est GFR ( Amer) 137, Glucose 96, Calcium 8.8, Total Bilirubin 0.3, AST 27, ALT 21, Alkaline Phosphatase 87, Troponin I < 0.01, Total Protein 6.1 L, Albumin 3.4 L, Globulin 2.7, Albumin/Globulin Ratio 1.3, Lipase 92 05/28/25 21:09: Troponin I < 0.01 05/28/25 17:53 05/28/25 17:53 Response Orders (Tests/Meds): ED MEDICATIONS Discontinued Medications Generic Name Dose Route Start Last Admin Trade Name Freq PRN Reason Stop Dose Admin Iopamidol 70 ml 05/28/25 19:03 05/28/25 19:04 Iopamidol-370 (76%);100ml Bottle IV 05/28/25 19:04 70 ml ONCE ONE Administration Sodium Chloride 40 ml 05/28/25 19:03 05/28/25 19:04 0.9 % Sodium Chloride 50 Ml Vial IV 05/28/25 19:04 40 ml ONCE ONE Administration Sodium Chloride 10 ml 05/28/25 19:03 05/28/25 19:04 Sodium Chloride 0.9% 10ml Syr (Rad Only) IV 05/28/25 19:04 10 ml ONCE ONE Administration ORDERS Category Date Time Status CT angio chest PE protocol Stat Cat Scan 05/28/25 18:33 Completed POCUS Point of Care (ER Only) Stat Exams 05/28/25 18:35 Completed CBC w/Auto Diff [Complete Blood Count Auto Diff] Stat Lab 05/28/25 17:53 Completed CMP [Comprehensive Metabolic Panel] Stat Lab 05/28/25 17:53 Completed D-Dimer Stat Lab 05/28/25 17:53 Completed Lipase Stat Lab 05/28/25 17:53 Completed Troponin I Q3H Lab 05/28/25 21:09 Completed Troponin I Q3H Lab 05/29/25 00:15 Ordered Troponin I Stat Lab 05/28/25 17:53 Completed ECG Data Tracing #1: Attestation: I reviewed this ECG and interpreted as documented below: ECG Narrative: EKG personally interpreted by me demonstrates sinus tachycardia at a rate of 101 bpm, normal axis, no GA prolongation, narrow QRS, no QTc prolongation. There is an incomplete right bundle branch block morphology. No ST elevation or depression. MDM Narrative Medical Decision Narrative: In summary this is a 34-year-old female patient who is presenting to the emergency department today for evaluation of chest pain across the left precordium and radiating into the back onset earlier today. The patient is currently and 30 weeks . She has no lower extremity erythema or edema. Aside from this she has no comorbidities that would complicate her medical management or care. On initial evaluation of the patient they were resting comfortably in no acute distress and nontoxic in appearance. They are hemodynamically stable, saturating well room air, and are neurologically intact. On physical examination her heart and lungs clear to auscultation bilaterally. Radial pulses are equal and symmetric bilaterally. No abdominal tenderness to palpation. I have performed a bedside POCUS assessment and appreciate an RV LV ratio less than 1, no pericardial effusion, no reduction in ejection fraction. Differential diagnose includes ACS/MO, pulmonary embolism, pneumonia, pleurisy, chest wall pain, pancreatitis, among other Workup was initiated with hematologic labs as well as an EKG. Labs personally turbid by me demonstrate no acute findings aside from her D-dimer which is elevated at 0.92. Given that she describes this potential hemoptysis we cannot use a cutoff of 0.5. As well, I do not have a better explanation aside from PE for her chest pain so this is the most likely diagnosis. Therefore I had a very long discussion with the patient and we have decided to proceed with a CT PE study. CT PE was personally turbid by me and demonstrates no saddle pulmonary embolus. Official radiology read is in agreement and states that there is no acute abnormality. Delta troponin did return and is less than 0.01 as well. This suggest against myocardial disease as the cause of her chest pain. I did also perform an bedside echo while the patient was with this in the emergency department. I appreciated no evidence of right heart strain, RV LV ratio less than 1, no pericardial effusion, and adequate ejection fraction. I have informed the patient of her results. I have asked her to follow-up with her primary care physician/SILVICULTURIST for further monitoring of her symptoms. At this time all questions have been answered and all parties are agreeable with the decision to discharge home Limited cardiac ultrasound note Indication: Chest pain Identified cardiac views: [Cardiac parasternal long axis] [Cardiac parasternal short axis] [Cardiac apical four-chamber] [Cardiac subxiphoid] Findings: Cardiac activity: Present Gross wall motion: Normal Pericardial effusion: Absent Right heart strain: Absent Impression: Normal limited cardiac echo with normal TAPSE Images were saved to permanent archive This study was technically adequate CPT: 56892 This study was performed by me and I personally interpreted all images/videos. Based on my clinical judgment these images were adequate and did not necessitate further imaging.
[2025-05-28 21:50] LABS: Troponin I < 0.01 ng/ml (0.00-0.034)
[2025-05-28 21:52] VITALS: BP 113/77; PULSE 95; RESP 19; O2SAT 100
[2025-05-28 22:03] VITALS: BP 113/63; PULSE 90; RESP 14; TEMP 36.9; O2SAT 90
== END 2025-05-28 22:20 | disposition home or self-care (01) ==
PROVIDERS: Emergency Provider Student in an Organized Health Care Education/Training Program; PCP Internal Medicine Adolescent Medicine
DX: O99.893 Other specified diseases and conditions complicating puerperium (principal); R07.89 Other chest pain; Z3A.30 30 weeks gestation of pregnancy
CPT/HCPCS: 71275; 80053; 83690; 84484; 85025; 85378; 93005; 99285; Q9967